=== PATIENT | female | born 1975 | race Caucasian/White ===

== ENCOUNTER 2018-03-12 12:10 | Inpatient (IN) | payer BC ==
[2018-03-12] MEDS ORDERED: ASPIRIN 325 MG TAB PO STA (12:55)
[2018-03-12] MEDS ORDERED: ONDANSETRON 4 MG/2 ML VIAL IVP STA (12:55)
[2018-03-12] MEDS ORDERED: SODIUM CHLORIDE 0.9% 1,000 ML IV ONE (12:55)
[2018-03-12 13:15] LABS: Basophils # (A) 0.1 k/uL (0-0.2); Basophils % (A) 1 %; Eosinophils # (A) 0.3 k/uL (0-0.7); Eosinophils % (A) 2 %; HCT 44.7 % (34.0-46.0); HGB 14.8 gm/dL (11.4-16.0); Lymphocytes # (A) 2.9 k/uL (1.0-4.8); Lymphocytes % (A) 24 %; MCH 31.1 pg (25.0-35.0); MCHC 33.1 g/dL (31.0-37.0); MCV 93.9 fL (80.0-100.0); Mean Platelet Volume 6.3; Monocytes # (A) 0.7 k/uL (0-1.0); Monocytes % (A) 6 %; Neutrophils # (A) 7.6 k/uL (1.3-7.7); Neutrophils % (A) 65 %; Platelet Count 441 k/uL (150-450); RBC 4.76 m/uL (3.80-5.40); RDW 12.9 % (11.5-15.5); WBC 11.8 k/uL (3.8-10.6)
[2018-03-12 13:21] LABS: Appearance,Urine Cloudy (Clear); Bacteria,Urine Occasional /hpf; Bilirubin,Urine Negative (Negative); Blood,Urine Moderate (Negative); Color,Urine Yellow; Glucose,Urine (UA) Negative (Negative); Ketones,Urine Trace (Negative); Leukocyte Esterase,Urine Large (Negative); Mucus,Urine Moderate /hpf; Nitrite,Urine Negative (Negative); PH, Urine 5.5 (5.0-8.0); Protein,Urine 1+ (Negative); RBC,Urine 66 /hpf (0-5); Specific Gravity,Urine 1.026 (1.001-1.035); Squamous Epithelial Cell,Urine 13 /hpf (0-4); Urobilinogen,Urine <2.0 mg/dL (<2.0); WBC,Urine 9 /hpf (0-5)
[2018-03-12 13:24] LABS: ALT 39 U/L (9-52); AST 33 U/L (14-36); Albumin 4.5 g/dL (3.5-5.0); Alcohol <10 mg/dL; Alkaline Phosphatase 71 U/L (38-126); Anion Gap 15 mmol/L; Blood Urea Nitrogen 15 mg/dL (7-17); Carbon Dioxide 17 mmol/L (22-30); Chloride 106 mmol/L (98-107); Glucose 112 mg/dL (74-99); Lipase 120 U/L (23-300); Potassium 4.9 mmol/L (3.5-5.1); Sodium 138 mmol/L (137-145); Total Bilirubin 0.5 mg/dL (0.2-1.3); Total Protein 7.6 g/dL (6.3-8.2)
--- NOTE | 2018-03-12 13:48 | ED ---
General Adult HPI - General Chief complaint: Weakness Stated complaint: weakness, nausea, near syncope Time Seen by Provider: 03/12/18 12:24 Source: patient Mode of arrival: wheelchair Limitations: no limitations - History of Present Illness Initial comments: 42-year-old female with past medical history as noted below presented for evaluation of a multitude of symptoms that been ongoing since she lost her job a week ago. She states at that time she became generally fatigued and has been sleeping for the majority of her days. This will be broken up by periods of crying and depression. She states that she has been continuing to eat however she has no appetite and has not been eating as much as usual. States is associated dizziness that she describes as the room spinning which is worse with ambulation and movement and improves with waiting. There some associated nausea and vomiting with it and abdominal pressure but she states that she is just getting over the "stomach flu" which proceeded losing her job a few days. She has previous abdominal surgeries which include a cholecystectomy and a partial hysterectomy. She has not started any new medications and has not taken any medications for her symptoms. She is visiting family here in [place] and does not have a primary care physician here. She further admits to suicidal ideations without a plan or attempt. - Related Data Home Medications Medication Instructions Recorded Confirmed Lisinopril [Prinivil] 20 mg PO DAILY 03/12/18 03/12/18 buPROPion [Wellbutrin] 100 mg PO BID 03/12/18 03/12/18 glipiZIDE [Glucotrol] 10 mg PO AC-BRKFST 03/12/18 03/12/18 metFORMIN HCL 1,000 mg PO BID 03/12/18 03/12/18 Allergies Allergy/AdvReac Type Severity Reaction Status Date / Time amoxicillin [From Augmentin] AdvReac Vomiting Verified 03/12/18 12:18 clavulanic acid AdvReac Vomiting Verified 03/12/18 12:18 [From Augmentin] Review of Systems ROS Statement: Those systems with pertinent positive or pertinent negative responses have been documented in the HPI. ROS Other: All systems not noted in ROS Statement are negative. Constitutional: Denies: fever, chills Eyes: Denies: eye pain, vision change ENT: Denies: ear pain, throat pain Respiratory: Denies: cough, dyspnea Cardiovascular: Denies: chest pain, palpitations Endocrine: Reports: fatigue. Denies: polydipsia, polyuria Gastrointestinal: Reports: abdominal pain, nausea, vomiting, diarrhea. Denies: constipation, hematemesis, hematochezia Genitourinary: Denies: urgency, dysuria Musculoskeletal: Denies: back pain, arthralgia, myalgia Skin: Denies: rash, lesions Neurological: Reports: headache, vertigo. Denies: weakness, numbness, paresthesias Psychiatric: Reports: anxiety, depression Hematological/Lymphatic: Denies: easy bleeding, easy bruising Past Medical History Past Medical History: Diabetes Mellitus, Hypertension History of Any Multi-Drug Resistant Organisms: None Reported Past Surgical History: Cholecystectomy, Hysterectomy, Tonsillectomy Past Psychological History: Depression Smoking Status: Never smoker Past Alcohol Use History: None Reported Past Drug Use History: None Reported General Exam Limitations: no limitations General appearance: alert, in no apparent distress Head exam: Present: atraumatic, normocephalic Eye exam: Present: normal appearance, PERRL, EOMI ENT exam: Present: normal exam, normal oropharynx Neck exam: Present: normal inspection, tenderness Respiratory exam: Present: normal lung sounds bilaterally, respiratory distress Cardiovascular Exam: Present: normal rhythm, tachycardia GI/Abdominal exam: Present: soft. Absent: distended, tenderness, guarding, rebound, rigid Rectal exam: Present: deferred Extremities exam: Present: normal inspection, full ROM Back exam: Present: normal inspection, full ROM Neurological exam: Present: alert, oriented X3 Psychiatric exam: Present: depressed, suicidal ideation, other (tearful) Skin exam: Present: warm, dry, intact Course Vital Signs 03/12/18 03/12/18 12:14 14:17 Temperature 98 F Pulse Rate 106 H 97 Respiratory 18 18 Rate Blood Pressure 126/85 127/85 O2 Sat by Pulse 98 99 Oximetry EKG Findings - EKG Comments: EKG Findings:: Sinus tachycardia with a ventricular rate of 105. Medical Decision Making - Medical Decision Making 43-year-old female with past medical history as noted above presented for evaluation of dizziness, nausea vomiting, abdominal pain, depression, and suicidal ideations. On physical examination she is tearful but consolable. Vital signs are stable with a mild tachycardia. Abdomen is soft and nontender without peritoneal signs of guarding rigidity or rebound. Lungs are clear to auscultation bilaterally, and the tachycardia is noted is without murmur or rub or gallop. Otherwise no significant abnormalities on physical exam. We'll obtain CT abdomen and pelvis and labs to evaluate medically however the patient will require psych eval. Consult was placed for psych evaluation and they were called and informed of the patient presenting symptoms. Labs showed a leukocytosis of 11.8 and urinary tract infection however this appears to be contaminated. CT abdomen and pelvis shows a partial obstruction of the left kidney at the ureteropelvic junction due to a 5 mm calculus. Discussed with the on-call urologist Dr. Rg who agreed with plan to set the patient on an antibiotic and requested that a straight cath urinalysis be obtained. Further agreed to take the patient as a consult and have her medically admitted. Discussed with Dr. Rangel who accepted the admission without further request. Admission order placed and bed request submitted. - Lab Data Result diagrams: 03/12/18 12:43 03/12/18 12:43 Lab Results 03/12/18 03/12/18 03/12/18 Range/Units 12:43 12:43 12:43 WBC 11.8 H (3.8-10.6) k/uL RBC 4.76 (3.80-5.40) m/uL Hgb 14.8 (11.4-16.0) gm/dL Hct 44.7 (34.0-46.0) % MCV 93.9 (80.0-100.0) fL MCH 31.1 (25.0-35.0) pg MCHC 33.1 (31.0-37.0) g/dL RDW 12.9 (11.5-15.5) % Plt Count 441 (150-450) k/uL Neutrophils % 65 % Lymphocytes % 24 % Monocytes % 6 % Eosinophils % 2 % Basophils % 1 % Neutrophils # 7.6 (1.3-7.7) k/uL Lymphocytes # 2.9 (1.0-4.8) k/uL Monocytes # 0.7 (0-1.0) k/uL Eosinophils # 0.3 (0-0.7) k/uL Basophils # 0.1 (0-0.2) k/uL Sodium 138 (137-145) mmol/L Potassium 4.9 (3.5-5.1) mmol/L Chloride 106 (98-107) mmol/L Carbon Dioxide 17 L (22-30) mmol/L Anion Gap 15 mmol/L BUN 15 (7-17) mg/dL Creatinine 0.60 (0.52-1.04) mg/dL Est GFR (CKD-EPI)AfAm >90 (>60 ml/min/1.73 sqM) Est GFR (CKD-EPI)NonAf >90 (>60 ml/min/1.73 sqM) Glucose 112 H (74-99) mg/dL Calcium 11.0 H (8.4-10.2) mg/dL Total Bilirubin 0.5 (0.2-1.3) mg/dL AST 33 (14-36) U/L ALT 39 (9-52) U/L Alkaline Phosphatase 71 (38-126) U/L Troponin I (0.000-0.034) ng/mL NT-Pro-B Natriuret Pep pg/mL Total Protein 7.6 (6.3-8.2) g/dL Albumin 4.5 (3.5-5.0) g/dL Lipase 120 (23-300) U/L Urine Color Urine Appearance (Clear) Urine pH (5.0-8.0) Ur Specific [place] (1.001-1.035) Urine Protein (Negative) Urine Glucose (UA) (Negative) Urine Ketones (Negative) Urine Blood (Negative) Urine Nitrite (Negative) Urine Bilirubin (Negative) Urine Urobilinogen (<2.0) mg/dL Ur Leukocyte Esterase (Negative) Urine RBC (0-5) /hpf Urine WBC (0-5) /hpf Ur Squamous Epith Cells (0-4) /hpf Urine Bacteria (None) /hpf Urine Mucus (None) /hpf Urine HCG, Qual Not Detected (Not Detectd) Serum Alcohol <10 mg/dL 03/12/18 03/12/18 03/12/18 Range/Units 12:43 12:43 12:43 WBC (3.8-10.6) k/uL RBC (3.80-5.40) m/uL Hgb (11.4-16.0) gm/dL Hct (34.0-46.0) % MCV (80.0-100.0) fL MCH (25.0-35.0) pg MCHC (31.0-37.0) g/dL RDW (11.5-15.5) % Plt Count (150-450) k/uL Neutrophils % % Lymphocytes % % Monocytes % % Eosinophils % % Basophils % % Neutrophils # (1.3-7.7) k/uL Lymphocytes # (1.0-4.8) k/uL Monocytes # (0-1.0) k/uL Eosinophils # (0-0.7) k/uL Basophils # (0-0.2) k/uL Sodium (137-145) mmol/L Potassium (3.5-5.1) mmol/L Chloride (98-107) mmol/L Carbon Dioxide (22-30) mmol/L Anion Gap mmol/L BUN (7-17) mg/dL Creatinine (0.52-1.04) mg/dL Est GFR (CKD-EPI)AfAm (>60 ml/min/1.73 sqM) Est GFR (CKD-EPI)NonAf (>60 ml/min/1.73 sqM) Glucose (74-99) mg/dL Calcium (8.4-10.2) mg/dL Total Bilirubin (0.2-1.3) mg/dL AST (14-36) U/L ALT (9-52) U/L Alkaline Phosphatase (38-126) U/L Troponin I <0.012 (0.000-0.034) ng/mL NT-Pro-B Natriuret Pep 17 pg/mL Total Protein (6.3-8.2) g/dL Albumin (3.5-5.0) g/dL Lipase (23-300) U/L Urine Color Yellow Urine Appearance Cloudy H (Clear) Urine pH 5.5 (5.0-8.0) Ur Specific [place] 1.026 (1.001-1.035) Urine Protein 1+ H (Negative) Urine Glucose (UA) Negative (Negative) Urine Ketones Trace H (Negative) Urine Blood Moderate H (Negative) Urine Nitrite Negative (Negative) Urine Bilirubin Negative (Negative) Urine Urobilinogen <2.0 (<2.0) mg/dL Ur Leukocyte Esterase Large H (Negative) Urine RBC 66 H (0-5) /hpf Urine WBC 9 H (0-5) /hpf Ur Squamous Epith Cells 13 H (0-4) /hpf Urine Bacteria Occasional H (None) /hpf Urine Mucus Moderate H (None) /hpf Urine HCG, Qual (Not Detectd) Serum Alcohol mg/dL Disposition Clinical Impression: Kidney stone, UTI (urinary tract infection), Suicidal ideations Disposition: ADMITTED IP TO THIS [facility] Referrals: None,Stated [Primary Care Provider] - 1-2 days Decision to Admit Reason: Admit from EC Decision Date: 03/12/18 Decision Time: 14:51
[2018-03-12] MEDS ORDERED: cefTRIAXone IN SWFI 1,000 MG/10 ML SYRINGE IVP STA (13:58)
--- NOTE | 2018-03-12 14:16 | CT ---
EXAMINATION TYPE: CT abdomen pelvis w con DATE OF EXAM: 03/12/2018 COMPARISON: NONE HISTORY: Weakness, Syncope and Nausea CT DLP: 1430.30 mGycm Automated exposure control for dose reduction was used. TECHNIQUE: Helical acquisition of images was performed from the lung bases through the pelvis. CONTRAST: Performed without Oral Contrast and with IV Contrast, patient injected with 100 ml mL of Isovue 300. FINDINGS: Lung bases are clear. There is no pleural effusion. There is no pericardial effusion. Liver spleen pancreas appear normal. There are clips from cholecystectomy. Bile ducts are not dilated . There is no adrenal mass. There are multiple small renal calculi. There is no hydronephrosis. There i s a 5 mm calculus at the left ureteropelvic junction. Is not clear if this is obstructing. There is n o significant dilation of the left renal pelvis. There is no retroperitoneal adenopathy. There is no ascites. Appendix appears normal. I see no intest inal wall thickening. There are no dilated loops. Bladder distends smoothly. There is no evidence of a pelvic mass. I see no bony destructive process. IMPRESSION: BILATERAL MULTIPLE RENAL CALCULI. THERE IS PROBABLY A PARTIAL OBSTRUCTION OF THE LEFT KIDNEY AT THE U RETEROPELVIC JUNCTION DUE TO CALCULUS. NORMAL APPENDIX.
[2018-03-12] MEDS ORDERED: KETOROLAC 30 MG/ML 1 ML VIAL IVP STA (14:22)
[2018-03-12] MEDS ORDERED: ONDANSETRON 4 MG/2 ML VIAL IVP PRN (14:51)
[2018-03-12] MEDS ORDERED: NALOXONE 0.4 MG/ML 1 ML VIAL IV PRN ×2 (14:51→15:55)
[2018-03-12] MEDS: SODIUM CHLORIDE 0.9% 1,000 ML IV SCH ×2 (15:42→21:20)
[2018-03-12 15:46] LABS: Appearance,Urine Clear (Clear); Bilirubin,Urine Negative (Negative); Blood,Urine Negative (Negative); Color,Urine Yellow; Glucose,Urine (UA) Negative (Negative); Ketones,Urine Trace (Negative); Leukocyte Esterase,Urine Negative (Negative); Nitrite,Urine Negative (Negative); PH, Urine 5.5 (5.0-8.0); Protein,Urine Trace (Negative); Urobilinogen,Urine <2.0 mg/dL (<2.0)
[2018-03-12 15:51] LABS: Specific Gravity,Urine >1.050 (1.001-1.035)
--- NOTE | 2018-03-12 16:15 | P.HPIM ---
History of Present Illness H&P Date: 03/12/18 Chief Complaint: Weak 42-year-old female with past medical history as noted below presented to the emergency department because of several days history of weakness, fatigue , dizziness, lethargy. About a week ago patient had what she thought to be a stomach flu, she was having frequent nausea, vomiting as well as diarrhea and abdominal pain. Currently those symptoms are resolved but she has been feeling general fatigue, has been sleeping for the majority of her days, hasn't been having much of an appetite or eating well. She denied having any fevers or chills. No chest pain or shortness of breath. No urinary symptoms including dysuria, frequency or urgency. No hematemesis or hematochezia. Patient has also been having depressed mood over the last several days, has been experiencing periods of crying. Earlier she had suicidal ideations but currently she doesn't have any. Review of Systems 12 point review of system performed, negative except HPI Past Medical History Past Medical History: Diabetes Mellitus, Hypertension History of Any Multi-Drug Resistant Organisms: None Reported Past Surgical History: Cholecystectomy, Hysterectomy, Tonsillectomy Past Psychological History: Depression Smoking Status: Never smoker Past Alcohol Use History: None Reported Past Drug Use History: None Reported Medications and Allergies Home Medications Medication Instructions Recorded Confirmed Type Lisinopril [Prinivil] 20 mg PO DAILY 03/12/18 03/12/18 History buPROPion HCL [Wellbutrin SR] 100 mg PO BID 03/12/18 03/12/18 History glipiZIDE [Glucotrol] 10 mg PO AC-BRKFST 03/12/18 03/12/18 History metFORMIN HCL 1,000 mg PO BID 03/12/18 03/12/18 History Allergies Allergy/AdvReac Type Severity Reaction Status Date / Time amoxicillin [From Augmentin] AdvReac Vomiting Verified 03/12/18 15:41 clavulanic acid AdvReac Vomiting Verified 03/12/18 15:41 [From Augmentin] Physical Exam Vitals: Vital Signs Temp Pulse Resp BP Pulse Ox 03/12/18 14:17 97 18 127/85 99 03/12/18 12:14 98 F 106 H 18 126/85 98 Intake and Output 03/12/18 03/12/18 03/12/18 06:59 14:59 22:59 Output Total 10 Balance -10 Output: Urine 10 Straight 10 Other: Weight 83.007 kg Constitutional: No acute distress, conversant, pleasant Eyes:Anicteric sclerae, moist conjunctiva, no lid-lag, PERRLA, ENMT: Oropharynx clear, no erythema, exudates Neck: Supple, FROM, no masses, or JVD, No carotid bruits, No thyromegaly Lungs: Clear to auscultation, Clear to percussion, Normal respiratory effort, no accessory muscle use Cardiovascular: Heart regular in rate and rhythm, No murmurs, gallops, or rubs, No peripheral edema Abdominal: Soft, Nontender, no guarding, rebound or rigidity, Normoactive bowel sounds, No hepatomegaly, No splenomegaly, No palpable mass Skin: Normal temperature, tone, texture, turgor, no induration, No subcutaneous nodules, No rash, lesions, No ulcers Extremities: No digital cyanosis, No clubbing, Pedal pulses intact and symmetrical, Radial pulses intact and symmetrical, No calf tenderness Psychiatric: Alert and oriented to person, place and time, appropriate affect, intact judgement Neuro: Muscles Strength 5/5 in all 4 extremities, Sensation to light touch grossly present throughout, Cranial nerves II-XII grossly intact, no focal sensory deficits Results CBC & Chem 7: 03/12/18 12:43 03/12/18 12:43 Labs: Abnormal Lab Results - Last 24 Hours (Table) 03/12/18 03/12/18 03/12/18 Range/Units 12:43 12:43 12:43 WBC 11.8 H (3.8-10.6) k/uL Carbon Dioxide 17 L (22-30) mmol/L Glucose 112 H (74-99) mg/dL Calcium 11.0 H (8.4-10.2) mg/dL Urine Appearance Cloudy H (Clear) Ur Specific [place] (1.001-1.035) Urine Protein 1+ H (Negative) Urine Ketones Trace H (Negative) Urine Blood Moderate H (Negative) Ur Leukocyte Esterase Large H (Negative) Urine RBC 66 H (0-5) /hpf Urine WBC 9 H (0-5) /hpf Ur Squamous Epith Cells 13 H (0-4) /hpf Urine Bacteria Occasional H (None) /hpf Urine Mucus Moderate H (None) /hpf 03/12/18 Range/Units 15:34 WBC (3.8-10.6) k/uL Carbon Dioxide (22-30) mmol/L Glucose (74-99) mg/dL Calcium (8.4-10.2) mg/dL Urine Appearance (Clear) Ur Specific [place] >1.050 H (1.001-1.035) Urine Protein Trace H (Negative) Urine Ketones Trace H (Negative) Urine Blood (Negative) Ur Leukocyte Esterase (Negative) Urine RBC (0-5) /hpf Urine WBC (0-5) /hpf Ur Squamous Epith Cells (0-4) /hpf Urine Bacteria (None) /hpf Urine Mucus (None) /hpf Assessment and Plan Plan: Acute sepsis likely secondary to urinary tract infection/pyelonephritis IV fluids Urine cultures sent in the emergency department Stat blood cultures and lactic acid level Antibiotics Kidney stones Urology consulted Will see patient in a.m. Depression with suicidal ideation Seen by psychiatry emergency department No need for a sitter at this point. Diabetes type 2 Resume home medications Sliding scale insulin with blood sugar checks every before meals and at bedtime Essential hypertension Resume home medications Stable DVT prophylaxis Not indicated as patient is ambulatory Disposition: Likely home Anticipated length of stay: 2-3 days Sepsis - Sepsis Sepsis Focused Exam #1 Sepsis Focused Exam Date: 03/12/18 Sepsis Focused Exam Time: 15:00 Capillary Refill: < 2 Seconds: Fingers, Toes Peripheral Pulses: Normal: Radial (R), Radial (L), Posterior Tibialis (R), Posterior Tibialis (L), Dorsalis Pedis (R), Dorsalis Pedis (L) Skin Color: Normal for Patient Respiratory Exam: normal lung sounds Cardiovascular Exam: regular rate, normal rhythm, normal heart sounds
[2018-03-12 16:49] VITALS: BMI 33.5
[2018-03-12] MEDS: LEVOFLOXACIN 750MG-D5W PMX 750 MG in DEXTROSE/WATER 1 150ML.BAG IVPB SCH (16:53)
[2018-03-12] MEDS: MORPHINE SULFATE 2 MG/ML SYRINGE IV PRN ×2 (16:59→21:21)
[2018-03-12] MEDS: INSULIN ASPART 100 UNIT/ML 1 ML 10 ML VIAL SQ SCH ×2 (17:12→21:20)
[2018-03-12 17:13] LABS: Glucose,Whole Blood 98 mg/dL (75-99)
[2018-03-12] MEDS: KETOROLAC 30 MG/ML 1 ML VIAL IVP PRN (18:17)
[2018-03-12] MEDS: oxyCODONE-APAP 5-325MG 1 EACH TAB PO PRN (19:50)
[2018-03-12 20:49] LABS: Glucose,Whole Blood 210 mg/dL (75-99)
[2018-03-12] MEDS: metFORMIN 500 MG TAB PO SCH (21:20)
[2018-03-12] MEDS: buPROPion 100 MG TAB PO SCH (21:20)
[2018-03-12] MEDS: ONDANSETRON 4 MG/2 ML VIAL IVP PRN (22:50)
[2018-03-12] MEDS: ACETAMINOPHEN TAB 325 MG TAB PO PRN (23:39)
[2018-03-13] MEDS: KETOROLAC 30 MG/ML 1 ML VIAL IVP PRN ×2 (01:27→15:40)
[2018-03-13] MEDS: SODIUM CHLORIDE 0.9% 1,000 ML IV SCH ×5 (02:51→21:06)
[2018-03-13] MEDS: MORPHINE SULFATE 2 MG/ML SYRINGE IV PRN ×5 (02:52→23:07)
[2018-03-13 07:23] LABS: Glucose,Whole Blood 140 mg/dL (75-99)
[2018-03-13] MEDS: INSULIN ASPART 100 UNIT/ML 1 ML 10 ML VIAL SQ SCH ×4 (07:52→21:07)
[2018-03-13] MEDS: LISINOPRIL 20 MG TAB PO SCH (07:53)
[2018-03-13] MEDS: glipiZIDE 10 MG TAB PO SCH (07:53)
[2018-03-13] MEDS: metFORMIN 500 MG TAB PO SCH ×2 (07:53→21:06)
[2018-03-13] MEDS: buPROPion 100 MG TAB PO SCH ×2 (07:53→21:06)
[2018-03-13] MEDS: ONDANSETRON 4 MG/2 ML VIAL IVP PRN ×2 (08:15→19:54)
[2018-03-13 08:38] LABS: Basophils # (A) 0.1 k/uL (0-0.2); Basophils % (A) 1 %; Eosinophils # (A) 0.3 k/uL (0-0.7); Eosinophils % (A) 3 %; HCT 38.6 % (34.0-46.0); HGB 12.4 gm/dL (11.4-16.0); Lymphocytes # (A) 3.8 k/uL (1.0-4.8); Lymphocytes % (A) 40 %; MCH 31.1 pg (25.0-35.0); MCHC 32.1 g/dL (31.0-37.0); MCV 96.8 fL (80.0-100.0); Mean Platelet Volume 6.2; Monocytes # (A) 0.6 k/uL (0-1.0); Monocytes % (A) 6 %; Neutrophils # (A) 4.6 k/uL (1.3-7.7); Neutrophils % (A) 48 %; Platelet Count 358 k/uL (150-450); RBC 3.99 m/uL (3.80-5.40); RDW 13.4 % (11.5-15.5); WBC 9.6 k/uL (3.8-10.6)
[2018-03-13 08:46] LABS: Anion Gap 9 mmol/L; Blood Urea Nitrogen 12 mg/dL (7-17); Calcium 9.1 mg/dL (8.4-10.2); Carbon Dioxide 18 mmol/L (22-30); Chloride 108 mmol/L (98-107); Glucose 129 mg/dL (74-99); Sodium 135 mmol/L (137-145)
[2018-03-13 09:05] LABS: Glucose,Whole Blood 140 mg/dL (75-99)
[2018-03-13] MEDS: ACETAMINOPHEN TAB 325 MG TAB PO PRN (11:10)
--- NOTE | 2018-03-13 11:24 | P.GSCN ---
History of Present Illness Consult date: 03/13/18 Reason for Consult: Left ureteral calculus History of present illness: The patient is a 42-year-old female who presented to emergency room yesterday afternoon with a variety of complaints including lethargy and nausea. White blood count was 11,900. A urinalysis showed 66 red cells, 9 white cells and 13 epithelial cells. Computed tomography scan of the abdomen and pelvis was obtained and identified a 4 mm diameter calculus in the proximal left ureter with mild left hydronephrosis. The patient apparently developed pain in her left flank while she was in the emergency room and the pain worsened yesterday evening. She rated it as an 8 out of 10 during the night but says she is more comfortable now. She has had no fever or chills. She denies any gross hematuria and has noted no recent change in her normal voiding pattern. The patient has a history of urolithiasis and says she first had a stone at the age of 17. She says that she has undergone 2 ureteroscopic removals of stones and one ESWL treatment. Her treatments in the past were performed in [place]. The patient normally lives in [place] and is in [place] only temporarily at the present time. She said that she had originally planned on returning to [place] tomorrow. Review of Systems - Constitutional Reports fatigue, Reports lethargy, Denies chills, Denies fever - Cardiovascular Denies shortness of breath - Respiratory Denies dyspnea - Gastrointestinal Reports as per HPI Past Medical History Past Medical History: Diabetes Mellitus, Hypertension History of Any Multi-Drug Resistant Organisms: None Reported Past Surgical History: Cholecystectomy, Hysterectomy, Tonsillectomy Additional Past Surgical History / Comment(s): partial hysterectomy, extracorporeal shockwave lithotripsy and ureteroscopy with lithotripsy twice Past Anesthesia/Blood Transfusion Reactions: No Reported Reaction Past Psychological History: Depression Smoking Status: Never smoker Past Alcohol Use History: None Reported Past Drug Use History: None Reported - Past Family History Father Family Medical History: Diabetes Mellitus, Myocardial Infarction ([place]) Additional Family Medical History / Comment(s): from [place] in 2007 at 60 years Medications and Allergies Home Medications Medication Instructions Recorded Confirmed Type Lisinopril [Prinivil] 20 mg PO DAILY 03/12/18 03/12/18 History buPROPion HCL [Wellbutrin SR] 100 mg PO BID 03/12/18 03/12/18 History glipiZIDE [Glucotrol] 10 mg PO AC-BRKFST 03/12/18 03/12/18 History metFORMIN HCL 1,000 mg PO BID 03/12/18 03/12/18 History Allergies Allergy/AdvReac Type Severity Reaction Status Date / Time amoxicillin [From Augmentin] AdvReac Vomiting Verified 03/12/18 15:41 clavulanic acid AdvReac Vomiting Verified 03/12/18 15:41 [From Augmentin] Surgical - Exam Vital Signs Temp Pulse Resp BP Pulse Ox 98 F 106 H 18 126/85 98 03/12/18 12:14 03/12/18 12:14 03/12/18 12:14 03/12/18 12:14 03/12/18 12:14 - General well developed, well nourished, no distress, obese - Respiratory normal respiratory effort - Abdomen Abdomen: soft, non tender, no organomegaly Results - Labs 03/13/18 07:56 03/13/18 07:56 Abnormal Lab Results - Last 24 Hours (Table) 03/12/18 03/12/18 03/12/18 Range/Units 12:43 12:43 12:43 WBC 11.8 H (3.8-10.6) k/uL Sodium (137-145) mmol/L Chloride (98-107) mmol/L Carbon Dioxide 17 L (22-30) mmol/L Creatinine (0.52-1.04) mg/dL Glucose 112 H (74-99) mg/dL POC Glucose (mg/dL) (75-99) mg/dL Calcium 11.0 H (8.4-10.2) mg/dL Urine Appearance Cloudy H (Clear) Ur Specific [place] (1.001-1.035) Urine Protein 1+ H (Negative) Urine Ketones Trace H (Negative) Urine Blood Moderate H (Negative) Ur Leukocyte Esterase Large H (Negative) Urine RBC 66 H (0-5) /hpf Urine WBC 9 H (0-5) /hpf Ur Squamous Epith Cells 13 H (0-4) /hpf Urine Bacteria Occasional H (None) /hpf Urine Mucus Moderate H (None) /hpf 03/12/18 03/12/18 03/13/18 Range/Units 15:34 20:46 07:16 WBC (3.8-10.6) k/uL Sodium (137-145) mmol/L Chloride (98-107) mmol/L Carbon Dioxide (22-30) mmol/L Creatinine (0.52-1.04) mg/dL Glucose (74-99) mg/dL POC Glucose (mg/dL) 210 H 140 H (75-99) mg/dL Calcium (8.4-10.2) mg/dL Urine Appearance (Clear) Ur Specific [place] >1.050 H (1.001-1.035) Urine Protein Trace H (Negative) Urine Ketones Trace H (Negative) Urine Blood (Negative) Ur Leukocyte Esterase (Negative) Urine RBC (0-5) /hpf Urine WBC (0-5) /hpf Ur Squamous Epith Cells (0-4) /hpf Urine Bacteria (None) /hpf Urine Mucus (None) /hpf 03/13/18 03/13/18 Range/Units 07:56 09:02 WBC (3.8-10.6) k/uL Sodium 135 L (137-145) mmol/L Chloride 108 H (98-107) mmol/L Carbon Dioxide 18 L (22-30) mmol/L Creatinine 0.50 L (0.52-1.04) mg/dL Glucose 129 H (74-99) mg/dL POC Glucose (mg/dL) 140 H (75-99) mg/dL Calcium (8.4-10.2) mg/dL Urine Appearance (Clear) Ur Specific [place] (1.001-1.035) Urine Protein (Negative) Urine Ketones (Negative) Urine Blood (Negative) Ur Leukocyte Esterase (Negative) Urine RBC (0-5) /hpf Urine WBC (0-5) /hpf Ur Squamous Epith Cells (0-4) /hpf Urine Bacteria (None) /hpf Urine Mucus (None) /hpf Microbiology - Last 24 Hours (Table) 03/12/18 15:34 Urine Culture - Preliminary Urine,Voided Diabetes panel 03/12/18 03/13/18 Range/Units 12:43 07:56 Sodium 138 135 L (137-145) mmol/L Potassium 4.9 5.0 (3.5-5.1) mmol/L Chloride 106 108 H (98-107) mmol/L Carbon Dioxide 17 L 18 L (22-30) mmol/L BUN 15 12 (7-17) mg/dL Creatinine 0.60 0.50 L (0.52-1.04) mg/dL Glucose 112 H 129 H (74-99) mg/dL Calcium 11.0 H 9.1 (8.4-10.2) mg/dL AST 33 (14-36) U/L ALT 39 (9-52) U/L Alkaline Phosphatase 71 (38-126) U/L Total Protein 7.6 (6.3-8.2) g/dL Albumin 4.5 (3.5-5.0) g/dL Calcium panel 03/12/18 03/13/18 Range/Units 12:43 07:56 Calcium 11.0 H 9.1 (8.4-10.2) mg/dL Albumin 4.5 (3.5-5.0) g/dL Pituitary panel 03/12/18 03/13/18 Range/Units 12:43 07:56 Sodium 138 135 L (137-145) mmol/L Potassium 4.9 5.0 (3.5-5.1) mmol/L Chloride 106 108 H (98-107) mmol/L Carbon Dioxide 17 L 18 L (22-30) mmol/L BUN 15 12 (7-17) mg/dL Creatinine 0.60 0.50 L (0.52-1.04) mg/dL Glucose 112 H 129 H (74-99) mg/dL Calcium 11.0 H 9.1 (8.4-10.2) mg/dL Adrenal panel 03/12/18 03/13/18 Range/Units 12:43 07:56 Sodium 138 135 L (137-145) mmol/L Potassium 4.9 5.0 (3.5-5.1) mmol/L Chloride 106 108 H (98-107) mmol/L Carbon Dioxide 17 L 18 L (22-30) mmol/L BUN 15 12 (7-17) mg/dL Creatinine 0.60 0.50 L (0.52-1.04) mg/dL Glucose 112 H 129 H (74-99) mg/dL Calcium 11.0 H 9.1 (8.4-10.2) mg/dL Total Bilirubin 0.5 (0.2-1.3) mg/dL AST 33 (14-36) U/L ALT 39 (9-52) U/L Alkaline Phosphatase 71 (38-126) U/L Total Protein 7.6 (6.3-8.2) g/dL Albumin 4.5 (3.5-5.0) g/dL Assessment and Plan Assessment: I personally reviewed the patient's computed tomography scan. She has a 4 mm diameter calculus in the proximal left ureter that may be somewhat bilobed. No other renal calculi were noted. i discussed further observation, ESWL or ureteroscopy with lithotripsy for the calculus. KUB will be obtained later today to determine whether or not ESWL may be a treatment option. I will reevaluate the patient in the morning. I am not convinced that the patient has a urinary tract infection as it is possible that this was a contaminated specimen area (1) Kidney stone Current Visit: Yes Status: Acute Code(s): N20.0 - CALCULUS OF KIDNEY SNOMED Code(s): 76360283
[2018-03-13 12:11] LABS: Glucose,Whole Blood 133 mg/dL (75-99)
--- NOTE | 2018-03-13 12:18 | XR ---
EXAMINATION TYPE: XR KUB DATE OF EXAM: 03/13/2018 COMPARISON: 03/12/2018 HISTORY: Left ureteral calculus TECHNIQUE: One view abdominal series FINDINGS: The osseous structures are intact. The bowel gas pattern is nonspecific. There are 3 calcifications overlying the lower pole the left kidney all measuring less than 5 mm. Right kidney assessment is limited due to fecal debris overlying bowel content. 2 punctate lower pole less than 5 mm calculi are suspected. Previous surgery in the right upper quadrant noted. Calcification right dilcia-pelvis appears to be rel ated to vascular calcification on the CT scan. IMPRESSION: 1. Bilateral nephrolithiasis.
--- NOTE | 2018-03-13 12:58 | P.PN ---
Subjective Progress Note Date: 03/13/18 Principal diagnosis: Flank pain, general weakness Patient has been having left-sided flank pain since last night. The pain is 8 out of 10 in severity. Still having nausea but no vomiting. No fevers or chills. Objective - Vital Signs Vital signs: Vital Signs Temp 97.3 F L 03/13/18 05:50 Pulse 86 03/13/18 05:50 Resp 16 03/13/18 05:50 BP 131/85 03/13/18 05:50 Pulse Ox 98 03/13/18 05:50 Intake & Output 03/12/18 03/13/18 03/13/18 18:59 06:59 18:59 Output Total 10 500 Balance -10 -500 Weight 83.007 kg Output: Urine 10 500 Straight 10 Other: Voiding Method Toilet # Voids 2 2 - Exam Constitutional: No acute distress, conversant, pleasant Eyes:Anicteric sclerae, moist conjunctiva, no lid-lag, PERRLA, ENMT: Oropharynx clear, no erythema, exudates Neck: Supple, FROM, no masses, or JVD, No carotid bruits, No thyromegaly Lungs: Clear to auscultation, Clear to percussion, Normal respiratory effort, no accessory muscle use Cardiovascular: Heart regular in rate and rhythm, No murmurs, gallops, or rubs, No peripheral edema Abdominal: Soft, Nontender, no guarding, rebound or rigidity, Normoactive bowel sounds, No hepatomegaly, No splenomegaly, No palpable mass Skin: Normal temperature, tone, texture, turgor, no induration, No subcutaneous nodules, No rash, lesions, No ulcers Extremities: No digital cyanosis, No clubbing, Pedal pulses intact and symmetrical, Radial pulses intact and symmetrical, No calf tenderness Psychiatric: Alert and oriented to person, place and time, appropriate affect, intact judgement Neuro: Muscles Strength 5/5 in all 4 extremities, Sensation to light touch grossly present throughout, Cranial nerves II-XII grossly intact, no focal sensory deficits - Labs CBC & Chem 7: 03/13/18 07:56 03/13/18 07:56 Labs: Abnormal Lab Results - Last 24 Hours (Table) 03/12/18 03/12/18 03/12/18 Range/Units 12:43 12:43 12:43 WBC 11.8 H (3.8-10.6) k/uL Sodium (137-145) mmol/L Chloride (98-107) mmol/L Carbon Dioxide 17 L (22-30) mmol/L Creatinine (0.52-1.04) mg/dL Glucose 112 H (74-99) mg/dL POC Glucose (mg/dL) (75-99) mg/dL Calcium 11.0 H (8.4-10.2) mg/dL Urine Appearance Cloudy H (Clear) Ur Specific [place] (1.001-1.035) Urine Protein 1+ H (Negative) Urine Ketones Trace H (Negative) Urine Blood Moderate H (Negative) Ur Leukocyte Esterase Large H (Negative) Urine RBC 66 H (0-5) /hpf Urine WBC 9 H (0-5) /hpf Ur Squamous Epith Cells 13 H (0-4) /hpf Urine Bacteria Occasional H (None) /hpf Urine Mucus Moderate H (None) /hpf 03/12/18 03/12/18 03/13/18 Range/Units 15:34 20:46 07:16 WBC (3.8-10.6) k/uL Sodium (137-145) mmol/L Chloride (98-107) mmol/L Carbon Dioxide (22-30) mmol/L Creatinine (0.52-1.04) mg/dL Glucose (74-99) mg/dL POC Glucose (mg/dL) 210 H 140 H (75-99) mg/dL Calcium (8.4-10.2) mg/dL Urine Appearance (Clear) Ur Specific [place] >1.050 H (1.001-1.035) Urine Protein Trace H (Negative) Urine Ketones Trace H (Negative) Urine Blood (Negative) Ur Leukocyte Esterase (Negative) Urine RBC (0-5) /hpf Urine WBC (0-5) /hpf Ur Squamous Epith Cells (0-4) /hpf Urine Bacteria (None) /hpf Urine Mucus (None) /hpf 03/13/18 03/13/18 03/13/18 Range/Units 07:56 09:02 12:03 WBC (3.8-10.6) k/uL Sodium 135 L (137-145) mmol/L Chloride 108 H (98-107) mmol/L Carbon Dioxide 18 L (22-30) mmol/L Creatinine 0.50 L (0.52-1.04) mg/dL Glucose 129 H (74-99) mg/dL POC Glucose (mg/dL) 140 H 133 H (75-99) mg/dL Calcium (8.4-10.2) mg/dL Urine Appearance (Clear) Ur Specific [place] (1.001-1.035) Urine Protein (Negative) Urine Ketones (Negative) Urine Blood (Negative) Ur Leukocyte Esterase (Negative) Urine RBC (0-5) /hpf Urine WBC (0-5) /hpf Ur Squamous Epith Cells (0-4) /hpf Urine Bacteria (None) /hpf Urine Mucus (None) /hpf Microbiology - Last 24 Hours (Table) 03/12/18 15:34 Urine Culture - Preliminary Urine,Voided Assessment and Plan Plan: Urinary tract infection/pyelonephritis Urine cultures sent in the emergency department Antibiotics Kidney stones Seen by urology Will reevaluate patient in a.m. options to let stones passed spontaneously versus doing lithotripsy or cystoscopy. Diabetes type 2 Resume home medications Blood sugars controlled Sliding scale insulin with blood sugar checks every before meals and at bedtime Essential hypertension Resume home medications Stable DVT prophylaxis Not indicated as patient is ambulatory Disposition: Likely home Anticipated length of stay: 1-2 days
[2018-03-13 17:09] LABS: Glucose,Whole Blood 85 mg/dL (75-99)
[2018-03-13] MEDS: LEVOFLOXACIN 750MG-D5W PMX 750 MG in DEXTROSE/WATER 1 150ML.BAG IVPB SCH (17:39)
--- NOTE | 2018-03-13 21:00 | P.PN ---
Progress Note - Text Progress Note Date: 03/13/18 The patient continues to have intermittent left flank pain. Her left ureteral calculi are visible on a KUB. I discussed observation vs ESWL and the patient says she would like to procede with ESWL tomorrow. All questions regarding ESWl were answered. She may be able to be discharged later in the day following the procedure if she is comfortable.
[2018-03-13] MEDS: oxyCODONE-APAP 5-325MG 1 EACH TAB PO PRN (21:05)
[2018-03-13 21:12] LABS: Glucose,Whole Blood 120 mg/dL (75-99)
[2018-03-14] MEDS: ACETAMINOPHEN TAB 325 MG TAB PO PRN ×3 (01:46→16:03)
[2018-03-14] MEDS: SODIUM CHLORIDE 0.9% 1,000 ML IV SCH ×3 (03:45→11:13)
[2018-03-14] MEDS: MORPHINE SULFATE 2 MG/ML SYRINGE IV PRN ×3 (03:46→13:30)
[2018-03-14] MEDS: ONDANSETRON 4 MG/2 ML VIAL IVP PRN (04:55)
[2018-03-14 07:28] LABS: Glucose,Whole Blood 118 mg/dL (75-99)
[2018-03-14] MEDS: INSULIN ASPART 100 UNIT/ML 1 ML 10 ML VIAL SQ SCH ×2 (07:29→12:59)
[2018-03-14] MEDS: LISINOPRIL 20 MG TAB PO SCH (07:39)
[2018-03-14] MEDS: buPROPion 100 MG TAB PO SCH (07:39)
[2018-03-14] MEDS ORDERED: FLUCONAZOLE 150 MG TAB PO SCH (10:00)
[2018-03-14] MEDS: metFORMIN 500 MG TAB PO SCH (10:35)
[2018-03-14] MEDS: glipiZIDE 10 MG TAB PO SCH (10:35)
[2018-03-14] MEDS ORDERED: IV FLUID CONTINUATION 1,000 ML IV ONE (11:30)
--- NOTE | 2018-03-14 12:09 | P.OP ---
Date of Procedure: 03/14/18 Preoperative Diagnosis: Left ureteral calculus Postoperative Diagnosis: Left ureteral calculus Procedure(s) Performed: Extracorporal shockwave lithotripsy Anesthesia: MAC Surgeon: Nathen Rg Estimated Blood Loss (ml): 0 Pathology: none sent Condition: stable Disposition: PACU Indications for Procedure: The patient has left flank pain from a 3-4 mm diameter calculus noted in the proximal left ureter on CT scan and KUB. ESWL is planned for treatment. Description of Procedure: The patient was taken to the operating suite and placed in the supine position on the fluoroscopy table. The proximal left ureteral calculus was localized using biplanar fluoroscopy. Lithotripsy was performed using the Dornier compact delta unit. The patient received 2500 shocks at level 5 at a rate of 80 shocks per minute. A 2 minute pause occured after 200 shocks. There appeared to be fragmentation of the calculus. The patient tolerated the procedure well and left the operating room in satisfactory condition She can be discharged later today if comfortable and should have a followup appointment in 1 week.
[2018-03-14 13:01] LABS: Glucose,Whole Blood 129 mg/dL (75-99)
[2018-03-14 14:53] VITALS: BP 142/88; PULSE 92; RESP 16; TEMP 96.6
--- NOTE | 2018-03-14 16:44 | P.DS ---
Providers Date of admission: 03/12/18 14:51 Expected date of discharge: 03/14/18 Attending physician: Cristo Rangel MD Consults: 03/12/18 14:52 Consult Physician Routine Consulting Provider: Nathen Rg Consult Reason/Comments: Kidney stone / UTI Do you want consulting provider notified?: Already Contacted Primary care physician: Stated None - Discharge Diagnosis(es) (1) Renal calculus, left Status: Acute (2) Left flank pain Status: Acute (3) Type 2 diabetes mellitus Status: Acute (4) Leukocytosis Status: Acute Hospital Course: The patient is a 42-year-old morbidly obese female with a past medical history of type 2 diabetes and recurrent kidney stones who presented to the ER with chief complaint of acute sudden onset of left flank and pelvic pain , on admission there is concern that the patient might have acute sepsis as she does present with a mild leukocytosis, with concern for urinary tract infection she was started on empiric IV antibiotics, placed on IV fluids for hydration with when necessary morphine for pain and Zofran for nausea. CT abdomen and pelvis performed in the ER showed multiple bilateral renal calculi with a partial obstruction of the left kidney at the UPJ. Urology Dr. Rg was consulted and he proceeded to perform a extracorporeal Shockwave with lithotripsy, antibiotics were discontinued urine cultures were negative. The patient tolerated her ESWL procedure without any adverse effects and was subsequently recommended for discharge. She was discharged home in stable condition recommended to follow-up with Dr. Rg in 1 week. Medications at discharge Flomax. This discharge process took approximately 30 minutes Patient Condition at Discharge: Good Plan - Discharge Summary Discharge Rx Participant: Yes New Discharge Prescriptions: New Tamsulosin [Flomax] 0.4 mg PO DAILY #10 cap Continue metFORMIN HCL 1,000 mg PO BID glipiZIDE [Glucotrol] 10 mg PO AC-BRKFST Lisinopril [Prinivil] 20 mg PO DAILY buPROPion HCL [Wellbutrin SR] 100 mg PO BID Discharge Medication List Lisinopril [Prinivil] 20 mg PO DAILY 03/12/18 [History] buPROPion HCL [Wellbutrin SR] 100 mg PO BID 03/12/18 [History] glipiZIDE [Glucotrol] 10 mg PO AC-BRKFST 03/12/18 [History] metFORMIN HCL 1,000 mg PO BID 03/12/18 [History] Tamsulosin [Flomax] 0.4 mg PO DAILY #10 cap 03/14/18 [Rx] Follow up Appointment(s)/Referral(s): None,Stated [Primary Care Provider] - 1-2 days Patient Instructions/Handouts: Kidney Stones (DC) Discharge Disposition: HOME SELF-CARE
--- NOTE | 2018-03-17 10:02 | CDI ---
Last Revision, August 2017 Documentation Clarification Form Date: 03/17/2018 12:00:00 AM From: Shawna Eaton Phone: If you have a question about this query, please contact Estephania Carver Roll Line Operator at [phone] between 8am and 5pm. Admit Date: 03/12/2018 2:51:00 PM Patient Name: Cally Clark Visit Number: [id number] Discharge Date: ATTENTION: The Clinical Documentation Specialists (CDI) and [facility] Coding Staff appreciate your assistance in clarifying documentation. Please respond to the clarification below the line at the bottom and electronically sign. The CDI & [facility] Coding staff will review the response and follow-up if needed. Please note: Queries are made part of the Legal Health Record. If you have any questions, please contact the author of this message via ITS. Dr. Pablito Brunson Documentation and location in H and P states Acute sepsis second to UTI/ pyelonephritis. DCS concern patient [facility] have acute sepsis with UTI started on empiric IV ABX and IV fluids. History/Risk Factors: Ureter Calculus, pyelonephritis Clinical Indicators: WBC/Left Shift 11.8 Lactic acid: Blood cultures: Vitals signs on admission: 98 F 106 bpm 18 126/85 98% Other Clinical Indicators: Treatment: Empiric IV ABX and IV fluids ID Consult: Antibiotics: IV Bolus: Other: In your professional opinion, please clarify if patient had sepsis, did it resolve or was it ruled out. Sepsis ruled out Present on Admission: No MTDD
== END 2018-03-14 16:25 | disposition home or self-care (01) | DRG 691 ==
LOC: EC 12:10 → 4MS4W 14:51
PROVIDERS: ADMIT Internal Medicine; ATTEND Internal Medicine
PROC: 0TF7XZZ Fragmentation in Left Ureter, External Approach (ICD-10-PCS; principal; 2018-03-14 07:30)
DX: N20.1 Calculus of ureter (principal); R45.851 Suicidal ideations; N13.6 Pyonephrosis; E11.9 Type 2 diabetes mellitus without complications; E66.01 Morbid (severe) obesity due to excess calories; F32.9 Major depressive disorder, single episode, unspecified; I10 Essential (primary) hypertension; Z87.442 Personal history of urinary calculi; Z79.899 Other long term (current) drug therapy; Z82.49 Family history of ischemic heart disease and other diseases of the circulatory system; Z83.3 Family history of diabetes mellitus; Z90.710 Acquired absence of both cervix and uterus; Z68.33 Body mass index [BMI] 33.0-33.9, adult; Z88.0 Allergy status to penicillin; Z79.84 Long term (current) use of oral hypoglycemic drugs
CPT/HCPCS: 36415; 74018; 74177; 80048; 80053; 80320; 81001; 81003; 81025; 83690; 83880; 84484; 85025; 87040; 87086; 93005; 96361; 96374; 96375; 99285

== ENCOUNTER 2022-04-21 08:21 | Inpatient (IN) | payer BC, OTHER ==
[2022-04-21] MEDS ORDERED: SODIUM CHLORIDE 0.9% 1,000 ML IV STA ×3 (08:25→09:52)
--- NOTE | 2022-04-21 08:30 | ED ---
Seizure HPI - General Stated Complaint: Seizure Time Seen by Provider: 04/21/22 08:21 Source: patient, EMS, RN notes reviewed Mode of arrival: EMS - History of Present Illness Initial Comments: 46-year-old female history of syncope in the past one episode of seizure years ago also history of hypertension diabetes and hyperlipidemia who apparently was found have a seizure tonic-clonic in nature lasting somewhere between 30 seconds and 120 seconds. EMS was called. She was postictal with confusion but by the time in the hospital she is awake and alert. She denies any pain fevers chills nausea vomiting sweats she does admit she had not fluids today. No dysuria hematuria no other complaints or modifying factors. Also per paramedics the patient's blood sugar upon evaluation was 186. MD Complaint: seizure - Related Data Home Medications Medication Instructions Recorded Confirmed lisinopriL [Prinivil] 20 mg PO DAILY 03/12/18 04/21/22 metFORMIN HCL [Glucophage] 1,000 mg PO BID 03/12/18 04/21/22 Atorvastatin Calcium [Lipitor] 40 mg PO HS 04/21/22 04/21/22 Cyclobenzaprine HCl 10 mg PO BID PRN 04/21/22 04/21/22 Gabapentin 600 mg PO BID 04/21/22 04/21/22 Insulin NPH Hum/Reg Insulin Hm 75 unit SQ BID 04/21/22 04/21/22 [Novolin 70-30 100 Unit/ml Vial] SUMAtriptan succinate [Imitrex] 25 mg PO BID PRN 04/21/22 04/21/22 Allergies Allergy/AdvReac Type Severity Reaction Status Date / Time amoxicillin [From Augmentin] AdvReac Vomiting Verified 04/21/22 11:29 clavulanic acid AdvReac Vomiting Verified 04/21/22 11:29 [From Augmentin] Review of Systems ROS Statement: Those systems with pertinent positive or pertinent negative responses have been documented in the HPI. ROS Other: All systems not noted in ROS Statement are negative. Past Medical History Past Medical History: Diabetes Mellitus, Hypertension History of Any Multi-Drug Resistant Organisms: None Reported Past Surgical History: Cholecystectomy, Hysterectomy, Tonsillectomy Additional Past Surgical History / Comment(s): partial hysterectomy, extracorporeal shockwave lithotripsy and ureteroscopy with lithotripsy twice Past Anesthesia/Blood Transfusion Reactions: No Reported Reaction Past Psychological History: Depression Past Alcohol Use History: None Reported Past Drug Use History: None Reported - Past Family History Father Family Medical History: Diabetes Mellitus, Myocardial Infarction ([place]) Additional Family Medical History / Comment(s): from [place] in 2007 at 60 years General Exam - General Exam Comments Initial Comments: This is a well-developed well-nourished awake alert oriented 4 female General appearance: alert, in no apparent distress Head exam: Present: atraumatic, normocephalic, normal inspection Eye exam: Present: normal appearance, PERRL, EOMI. Absent: scleral icterus, conjunctival injection, periorbital swelling ENT exam: Present: mucous membranes dry Neck exam: Present: normal inspection, full ROM, other. Absent: tenderness, meningismus, lymphadenopathy Respiratory exam: Present: normal lung sounds bilaterally. Absent: respiratory distress, wheezes, rales, rhonchi, stridor Cardiovascular Exam: Present: normal rhythm, tachycardia, normal heart sounds. Absent: systolic murmur, diastolic murmur, rubs, gallop, clicks GI/Abdominal exam: Present: soft, normal bowel sounds. Absent: distended, tenderness, guarding, rebound, rigid, bruit, pulsatile mass Extremities exam: Present: normal inspection, full ROM, normal capillary refill. Absent: tenderness, pedal edema, joint swelling, calf tenderness Back exam: Present: normal inspection Neurological exam: Present: alert, oriented X3, CN II-XII intact Psychiatric exam: Present: normal affect, normal mood Skin exam: Present: warm, dry, intact, normal color. Absent: rash Course Vital Signs 04/21/22 04/21/22 04/21/22 08:24 08:37 09:58 Temperature 97.9 F Pulse Rate 133 H 131 H 123 H Respiratory 22 18 18 Rate Blood Pressure 151/104 127/94 121/93 O2 Sat by Pulse 96 98 99 Oximetry 04/21/22 11:57 Temperature Pulse Rate 120 H Respiratory 18 Rate Blood Pressure 121/91 O2 Sat by Pulse 97 Oximetry - Reevaluation(s) Reevaluation #1: 04/21/22 08:30 Patient was found be tachycardic she states she generally hasn't had a heart rate sometimes higher than 100 sometimes up as high as 120. He denies any known history of cardiac disease. Reevaluation #2: 04/21/22 13:16 Patient rested comfortably throughout the morning I did discuss the initial findings with the patient and her mother was present. After discussion with Dr. Haque patient was noted have a tonic-clonic seizure lasting approximately 2 minutes. There was left lateral gaze. Patient was given IV Keppra as well as IV Ativan prior to this. Medical Decision Making - Lab Data Result diagrams: 04/21/22 08:33 04/21/22 08:33 Lab Results 04/21/22 04/21/22 04/21/22 Range/Units 08:33 08:33 08:33 WBC 9.4 (3.8-10.6) k/uL RBC 3.87 (3.80-5.40) m/uL Hgb 11.1 L (11.4-16.0) gm/dL Hct 35.2 (34.0-46.0) % MCV 90.9 (80.0-100.0) fL MCH 28.6 (25.0-35.0) pg MCHC 31.5 (31.0-37.0) g/dL RDW 15.5 (11.5-15.5) % Plt Count 397 (150-450) k/uL MPV 6.8 Neutrophils % 62 % Lymphocytes % 24 % Monocytes % 9 % Eosinophils % 3 % Basophils % 1 % Neutrophils # 5.8 (1.3-7.7) k/uL Lymphocytes # 2.3 (1.0-4.8) k/uL Monocytes # 0.8 (0-1.0) k/uL Eosinophils # 0.3 (0-0.7) k/uL Basophils # 0.1 (0-0.2) k/uL Hypochromasia Moderate D-Dimer (<0.60) mg/L FEU Sodium 134 L (137-145) mmol/L Potassium 4.5 (3.5-5.1) mmol/L Chloride 103 (98-107) mmol/L Carbon Dioxide 19 L (22-30) mmol/L Anion Gap 12 mmol/L BUN 14 (7-17) mg/dL Creatinine 0.67 (0.52-1.04) mg/dL Est GFR (CKD-EPI)AfAm >90 (>60 ml/min/1.73 sqM) Est GFR (CKD-EPI)NonAf >90 (>60 ml/min/1.73 sqM) Glucose 235 H (74-99) mg/dL Lactic Ac Sepsis Rflx Plasma Lactic Acid Stiven 4.3 H* (0.7-2.0) mmol/L Calcium 9.9 (8.4-10.2) mg/dL Magnesium 1.3 L (1.6-2.3) mg/dL Total Bilirubin 0.5 (0.2-1.3) mg/dL AST 51 H (14-36) U/L ALT 44 H (4-34) U/L Alkaline Phosphatase 119 (38-126) U/L Creatine Kinase 37 (30-135) U/L Total Protein 7.6 (6.3-8.2) g/dL Albumin 4.2 (3.5-5.0) g/dL TSH 3.210 (0.465-4.680) mIU/L Urine Color Urine Appearance (Clear) Urine pH (5.0-8.0) Ur Specific [place] (1.001-1.035) Urine Protein (Negative) Urine Glucose (UA) (Negative) Urine Ketones (Negative) Urine Blood (Negative) Urine Nitrite (Negative) Urine Bilirubin (Negative) Urine Urobilinogen (<2.0) mg/dL Ur Leukocyte Esterase (Negative) Urine Opiates Screen (NotDetected) Ur Oxycodone Screen (NotDetected) Urine Methadone Screen (NotDetected) Ur Propoxyphene Screen (NotDetected) Ur Barbiturates Screen (NotDetected) U Tricyclic Antidepress (NotDetected) Ur Phencyclidine Scrn (NotDetected) Ur Amphetamines Screen (NotDetected) U Methamphetamines Scrn (NotDetected) U Benzodiazepines Scrn (NotDetected) Urine Cocaine Screen (NotDetected) U Marijuana (THC) Screen (NotDetected) 04/21/22 04/21/22 04/21/22 Range/Units 08:41 09:02 10:15 WBC (3.8-10.6) k/uL RBC (3.80-5.40) m/uL Hgb (11.4-16.0) gm/dL Hct (34.0-46.0) % MCV (80.0-100.0) fL MCH (25.0-35.0) pg MCHC (31.0-37.0) g/dL RDW (11.5-15.5) % Plt Count (150-450) k/uL MPV Neutrophils % % Lymphocytes % % Monocytes % % Eosinophils % % Basophils % % Neutrophils # (1.3-7.7) k/uL Lymphocytes # (1.0-4.8) k/uL Monocytes # (0-1.0) k/uL Eosinophils # (0-0.7) k/uL Basophils # (0-0.2) k/uL Hypochromasia D-Dimer 0.29 (<0.60) mg/L FEU Sodium (137-145) mmol/L Potassium (3.5-5.1) mmol/L Chloride (98-107) mmol/L Carbon Dioxide (22-30) mmol/L Anion Gap mmol/L BUN (7-17) mg/dL Creatinine (0.52-1.04) mg/dL Est GFR (CKD-EPI)AfAm (>60 ml/min/1.73 sqM) Est GFR (CKD-EPI)NonAf (>60 ml/min/1.73 sqM) Glucose (74-99) mg/dL Lactic Ac Sepsis Rflx Y Plasma Lactic Acid Stiven (0.7-2.0) mmol/L Calcium (8.4-10.2) mg/dL Magnesium (1.6-2.3) mg/dL Total Bilirubin (0.2-1.3) mg/dL AST (14-36) U/L ALT (4-34) U/L Alkaline Phosphatase (38-126) U/L Creatine Kinase (30-135) U/L Total Protein (6.3-8.2) g/dL Albumin (3.5-5.0) g/dL TSH (0.465-4.680) mIU/L Urine Color Light Yellow Urine Appearance Clear (Clear) Urine pH 5.5 (5.0-8.0) Ur Specific [place] 1.015 (1.001-1.035) Urine Protein Trace H (Negative) Urine Glucose (UA) 3+ H (Negative) Urine Ketones Trace H (Negative) Urine Blood Negative (Negative) Urine Nitrite Negative (Negative) Urine Bilirubin Negative (Negative) Urine Urobilinogen <2.0 (<2.0) mg/dL Ur Leukocyte Esterase Negative (Negative) Urine Opiates Screen Detected H (NotDetected) Ur Oxycodone Screen Not Detected (NotDetected) Urine Methadone Screen Not Detected (NotDetected) Ur Propoxyphene Screen Not Detected (NotDetected) Ur Barbiturates Screen Not Detected (NotDetected) U Tricyclic Antidepress Detected H (NotDetected) Ur Phencyclidine Scrn Not Detected (NotDetected) Ur Amphetamines Screen Not Detected (NotDetected) U Methamphetamines Scrn Not Detected (NotDetected) U Benzodiazepines Scrn Detected H (NotDetected) Urine Cocaine Screen Not Detected (NotDetected) U Marijuana (THC) Screen Not Detected (NotDetected) 04/21/22 Range/Units 12:10 WBC (3.8-10.6) k/uL RBC (3.80-5.40) m/uL Hgb (11.4-16.0) gm/dL Hct (34.0-46.0) % MCV (80.0-100.0) fL MCH (25.0-35.0) pg MCHC (31.0-37.0) g/dL RDW (11.5-15.5) % Plt Count (150-450) k/uL MPV Neutrophils % % Lymphocytes % % Monocytes % % Eosinophils % % Basophils % % Neutrophils # (1.3-7.7) k/uL Lymphocytes # (1.0-4.8) k/uL Monocytes # (0-1.0) k/uL Eosinophils # (0-0.7) k/uL Basophils # (0-0.2) k/uL Hypochromasia D-Dimer (<0.60) mg/L FEU Sodium (137-145) mmol/L Potassium (3.5-5.1) mmol/L Chloride (98-107) mmol/L Carbon Dioxide (22-30) mmol/L Anion Gap mmol/L BUN (7-17) mg/dL Creatinine (0.52-1.04) mg/dL Est GFR (CKD-EPI)AfAm (>60 ml/min/1.73 sqM) Est GFR (CKD-EPI)NonAf (>60 ml/min/1.73 sqM) Glucose (74-99) mg/dL Lactic Ac Sepsis Rflx Plasma Lactic Acid Stiven 2.8 H* (0.7-2.0) mmol/L Calcium (8.4-10.2) mg/dL Magnesium (1.6-2.3) mg/dL Total Bilirubin (0.2-1.3) mg/dL AST (14-36) U/L ALT (4-34) U/L Alkaline Phosphatase (38-126) U/L Creatine Kinase (30-135) U/L Total Protein (6.3-8.2) g/dL Albumin (3.5-5.0) g/dL TSH (0.465-4.680) mIU/L Urine Color Urine Appearance (Clear) Urine pH (5.0-8.0) Ur Specific [place] (1.001-1.035) Urine Protein (Negative) Urine Glucose (UA) (Negative) Urine Ketones (Negative) Urine Blood (Negative) Urine Nitrite (Negative) Urine Bilirubin (Negative) Urine Urobilinogen (<2.0) mg/dL Ur Leukocyte Esterase (Negative) Urine Opiates Screen (NotDetected) Ur Oxycodone Screen (NotDetected) Urine Methadone Screen (NotDetected) Ur Propoxyphene Screen (NotDetected) Ur Barbiturates Screen (NotDetected) U Tricyclic Antidepress (NotDetected) Ur Phencyclidine Scrn (NotDetected) Ur Amphetamines Screen (NotDetected) U Methamphetamines Scrn (NotDetected) U Benzodiazepines Scrn (NotDetected) Urine Cocaine Screen (NotDetected) U Marijuana (THC) Screen (NotDetected) - EKG Data -: EKG Interpreted by Me EKG Comments: Sinus tachycardia rate 131. Interval 182 QRS duration 90 QT since QTC 3:30/390 evidence of left axis deviation Critical Care Time Critical Care Time: Yes Total Critical Care Time: 31 Critical Care Time: Time includes initial presentation with history physical labs x-rays multiple reevaluation the patient discussion with the patient family discuss with the admitting physician reevaluation the patient during and after the seizure that was noted in the emergency department documentation the above and admission orders Disposition Clinical Impression: Generalized seizure, Hypomagnesemia, Dehydration Disposition: ADMITTED IP TO THIS HOSP Condition: Fair Referrals: Linus Lundberg MD [Primary Care Provider] - 1-2 days Decision Date: 04/21/22 Decision Time: 13:00
[2022-04-21 08:44] LABS: Basophils # (A) 0.1 k/uL (0-0.2); Basophils % (A) 1 %; Eosinophils # (A) 0.3 k/uL (0-0.7); Eosinophils % (A) 3 %; HCT 35.2 % (34.0-46.0); HGB 11.1 gm/dL (11.4-16.0); Hypochromasia Moderate; Lymphocytes # (A) 2.3 k/uL (1.0-4.8); Lymphocytes % (A) 24 %; MCH 28.6 pg (25.0-35.0); MCHC 31.5 g/dL (31.0-37.0); MCV 90.9 fL (80.0-100.0); Mean Platelet Volume 6.8; Monocytes # (A) 0.8 k/uL (0-1.0); Monocytes % (A) 9 %; Neutrophils # (A) 5.8 k/uL (1.3-7.7); Neutrophils % (A) 62 %; Platelet Count 397 k/uL (150-450); RBC 3.87 m/uL (3.80-5.40); RDW 15.5 % (11.5-15.5); WBC 9.4 k/uL (3.8-10.6)
[2022-04-21] MEDS ORDERED: ONDANSETRON 4 MG/2 ML VIAL IVP STA ×2 (08:45→15:10)
[2022-04-21 08:55] LABS: ALT 44 U/L (4-34); AST 51 U/L (14-36); African American GFR (CKD) >90 (>60 ml/min/1.73 sqM); Albumin 4.2 g/dL (3.5-5.0); Alkaline Phosphatase 119 U/L (38-126); Anion Gap 12 mmol/L; Blood Urea Nitrogen 14 mg/dL (7-17); Calcium 9.9 mg/dL (8.4-10.2); Carbon Dioxide 19 mmol/L (22-30); Chloride 103 mmol/L (98-107); Creatine Kinase 37 U/L (30-135); Glucose 235 mg/dL (74-99); Magnesium 1.3 mg/dL (1.6-2.3); Non-African American GFR(CKD) >90 (>60 ml/min/1.73 sqM); Potassium 4.5 mmol/L (3.5-5.1); Sodium 134 mmol/L (137-145); Total Bilirubin 0.5 mg/dL (0.2-1.3); Total Protein 7.6 g/dL (6.3-8.2)
--- NOTE | 2022-04-21 09:16 | CT ---
EXAMINATION TYPE: CT brain wo con CT DLP: 1099.5 mGycm, Automated exposure control for dose reduction was used. DATE OF EXAM: 04/21/2022 9:04 AM COMPARISON: None. CLINICAL INDICATION:Female, 46 years old with history of seizure activity, Seizure TECHNIQUE: Brain: Multiple axial CT images of the brain were obtained without IV contrast. Coronal and sagittal reformats reviewed. FINDINGS: Brain: Extra-axial spaces: No abnormal extra-axial fluid collections. Ventricular system: Ex vacuo dilatation of the anterior horn of the right lateral ventricle. Cerebral parenchyma: No acute intraparenchymal hemorrhage or mass effect. Remote injury to the right insula. The barker-white junction is well differentiated. Cerebellum: Unremarkable. Mass effect: No evidence of midline shift. Intracranial vasculature: unremarkable Soft tissues: Normal. Calvarium/osseous structures: No depressed skull fracture. Paranasal sinuses and mastoid air cells: Clear Visualized orbits: Orbital contents are intact. IMPRESSION: No acute intracranial process. Remote injury to the right insula.
--- NOTE | 2022-04-21 09:17 | XR ---
EXAMINATION TYPE: XR chest 2V DATE OF EXAM: 04/21/2022 COMPARISON: NONE HISTORY: Seizure and tachycardia TECHNIQUE: Frontal and lateral views of the chest are obtained. FINDINGS: There is no focal air space opacity, pleural effusion, or pneumothorax seen. The cardiac silhouette size is within normal limits. There are overlying leads. The lung volumes are low. The os seous structures are intact. IMPRESSION: No acute cardiopulmonary process.
[2022-04-21] MEDS: MAGNESIUM SULFATE-D5W PMX 1 GM in DEXTROSE/WATER 1 100ML.BAG IVPB SCH ×2 (10:43→13:00)
[2022-04-21 11:10] LABS: Appearance,Urine Clear (Clear); Bilirubin,Urine Negative (Negative); Blood,Urine Negative (Negative); Color,Urine Light Yellow; Glucose,Urine (UA) 3+ (Negative); Ketones,Urine Trace (Negative); Leukocyte Esterase,Urine Negative (Negative); Nitrite,Urine Negative (Negative); PH, Urine 5.5 (5.0-8.0); Protein,Urine Trace (Negative); Specific Gravity,Urine 1.015 (1.001-1.035); Urobilinogen,Urine <2.0 mg/dL (<2.0)
[2022-04-21 11:52] LABS: Amphetamine Screen,Urine Not Detected (NotDetected); Barbiturate Screen,Urine Not Detected (NotDetected); Benzodiazepines Screen,Urine Detected (NotDetected); Cocaine Screen,Urine Not Detected (NotDetected); Methadone Screen, Urine Not Detected (NotDetected); Opiate Screen,Urine Detected (NotDetected); Oxycodone Screen, Urine Not Detected (NotDetected); Phencyclidine Screen,Urine Not Detected (NotDetected); Tricyclic Antidepressant,Urine Detected (NotDetected); Urn Cannabinoid Scrn Not Detected (NotDetected)
[2022-04-21] MEDS ORDERED: LORazepam 2 MG/ML INJ IV STA (13:04)
[2022-04-21] MEDS ORDERED: levETIRAcetam IV 1,500 MG in SALINE 1 100ML.BAG IVPB STA (13:06)
[2022-04-21] MEDS ORDERED: NALOXONE 0.4 MG/ML 1 ML VIAL IV PRN (13:19)
[2022-04-21] MEDS ORDERED: CYCLOBENZAPRINE 10 MG TAB PO PRN (13:21)
[2022-04-21] MEDS ORDERED: LORazepam 2 MG/ML INJ IV PRN (13:37)
--- NOTE | 2022-04-21 13:39 | P.HPIM ---
History of Present Illness H&P Date: 04/21/22 Chief Complaint: Seizure 46-year-old woman with a medical history of hypertension, diabetes, hyperlipidemia, migraines, depression, recently started on Wellbutrin presented with seizure. Patient says that she had a seizure once before approximately 8 years ago when she was a movie theater, is not sure of inciting event. She does not drink or do drugs. She was recently started on Wellbutrin for her depression approximately 2 weeks ago. Her mother found her having a tonic- clonic seizure which lasted approximately 2 minutes with postictal confusion and was subsequently brought into the hospital for further evaluation. While she is in the hospital and during my evaluation patient had another one and a half minute seizure which was tonic clonic nature. During this episode, she did have desaturation of 85% which recovered quickly with nonrebreather. Patient was given 2 mg of Ativan and loaded with Keppra. She'll be admitted to our service with neurology consult. In the emergency room, patient is afebrile, 151/104, heart rate 120-133. Lab work demonstrates mild anemia down to 11.1. Chemistries show mild hyponatremia, mild acidosis without an anion gap, elevated glucose to 235. Patient has a low magnesium down to 1.3. Patient's LFTs show mild elevation with AST/ALT of 51/44. TSH was 3.2. D-dimer was 0.29. Initial lactic acid was 4.3, improved to 2.8 upon repeat. UA shows trace protein, 3+ glucose, trace ketones. Urine tox screen demonstrates positive opiates, tricyclic antidepressants, benzodiazepines. Brain CT does not show any acute intracranial process but shows a remote injury to the right insula. Chest x-ray is clear. EKG demonst rates sinus tachycardia with a mild left axis deviation. All Systems reviewed and pertinent positives and negatives noted in HPI, all other symptoms are negative Gen: in no apparent distress, resting comfortably in bed Eyes: PERRL, no scleral injection or icterus HENT: normocephalic, atraumatic, good hearing acuity, moist mucous membranes Neck: no tracheal deviation, full range of motion Resp: good air exchange, breathing comfortably with no accessory muscle use, no tactile fremitus CVS: good distal perfusion x 4, no pitting edema GI: soft, NTTP, ND, no hepatosplenomegaly : no suprapubic tenderness, no CVAT, cobb catheter not present MSK: no clubbing, no cyanosis, no noted contractures of extremities Skin: no noted rashes, petechiae; temperature of skin is appropriate Neuro: moving all extremities without signs of weakness, CN II-XII intact Psych: cooperative, euthymic mood, insight and judgment intact Labs and imaging reviewed as above Assessment/plan: Seizures, tonic-clonic (Possibly triggered by initiation of Wellbutrin for depression) -Admit inpatient, telemetry -Neurology consult -Loaded Keppra 1500 mg, 500 twice a day -Ativan when necessary for seizures -Seizure precautions -EEG -MRI Hypertension Hyperlipidemia Diabetes Migraines Depression -Home medications reviewed and reconciled -Discontinue Wellbutrin Patient is full code DVT prophylaxis with early ambulation Past Medical History Past Medical History: Diabetes Mellitus, Hypertension Additional Past Medical History / Comment(s): 1 seizure History of Any Multi-Drug Resistant Organisms: None Reported Past Surgical History: Cholecystectomy, Hysterectomy, Tonsillectomy Additional Past Surgical History / Comment(s): partial hysterectomy, extracorporeal shockwave lithotripsy and ureteroscopy with lithotripsy twice Past Anesthesia/Blood Transfusion Reactions: No Reported Reaction Past Psychological History: Depression Past Alcohol Use History: None Reported Past Drug Use History: None Reported - Past Family History Father Family Medical History: Diabetes Mellitus, Myocardial Infarction ([place]) Additional Family Medical History / Comment(s): from [place] in 2007 at 60 years Medications and Allergies Home Medications Medication Instructions Recorded Confirmed Type lisinopriL [Prinivil] 20 mg PO DAILY 03/12/18 04/21/22 History metFORMIN HCL [Glucophage] 1,000 mg PO BID 03/12/18 04/21/22 History Atorvastatin Calcium [Lipitor] 40 mg PO HS 04/21/22 04/21/22 History Cyclobenzaprine HCl 10 mg PO BID PRN 04/21/22 04/21/22 History Gabapentin 600 mg PO BID 04/21/22 04/21/22 History Insulin NPH Hum/Reg Insulin Hm 75 unit SQ BID 04/21/22 04/21/22 History [Novolin 70-30 100 Unit/ml Vial] SUMAtriptan succinate [Imitrex] 25 mg PO BID PRN 04/21/22 04/21/22 History Allergies Allergy/AdvReac Type Severity Reaction Status Date / Time amoxicillin [From Augmentin] AdvReac Vomiting Verified 04/21/22 11:29 clavulanic acid AdvReac Vomiting Verified 04/21/22 11:29 [From Augmentin] Physical Exam Osteopathic Statement: *. No significant issues noted on an osteopathic structural exam other than those noted in the History and Physical/Consult. Vitals: Vital Signs Temp Pulse Resp BP Pulse Ox 04/21/22 11:57 120 H 18 121/91 97 04/21/22 09:58 123 H 18 121/93 99 04/21/22 08:37 131 H 18 127/94 98 04/21/22 08:24 97.9 F 133 H 22 151/104 96 Intake and Output 04/20/22 04/21/22 04/21/22 22:59 06:59 14:59 Other: Weight 87.997 kg Results CBC & Chem 7: 04/21/22 08:33 04/21/22 08:33 Labs: Abnormal Lab Results - Last 24 Hours (Table) 04/21/22 04/21/22 04/21/22 Range/Units 08:33 08:33 08:33 Hgb 11.1 L (11.4-16.0) gm/dL Sodium 134 L (137-145) mmol/L Carbon Dioxide 19 L (22-30) mmol/L Glucose 235 H (74-99) mg/dL Plasma Lactic Acid Stiven 4.3 H* (0.7-2.0) mmol/L Magnesium 1.3 L (1.6-2.3) mg/dL AST 51 H (14-36) U/L ALT 44 H (4-34) U/L Urine Protein (Negative) Urine Glucose (UA) (Negative) Urine Ketones (Negative) Urine Opiates Screen (NotDetected) U Tricyclic Antidepress (NotDetected) U Benzodiazepines Scrn (NotDetected) 04/21/22 04/21/22 Range/Units 10:15 12:10 Hgb (11.4-16.0) gm/dL Sodium (137-145) mmol/L Carbon Dioxide (22-30) mmol/L Glucose (74-99) mg/dL Plasma Lactic Acid Stiven 2.8 H* (0.7-2.0) mmol/L Magnesium (1.6-2.3) mg/dL AST (14-36) U/L ALT (4-34) U/L Urine Protein Trace H (Negative) Urine Glucose (UA) 3+ H (Negative) Urine Ketones Trace H (Negative) Urine Opiates Screen Detected H (NotDetected) U Tricyclic Antidepress Detected H (NotDetected) U Benzodiazepines Scrn Detected H (NotDetected)
[2022-04-21 17:06] LABS: Glucose,Whole Blood 211 mg/dL (70-110)
[2022-04-21] MEDS: INSULIN ASPART (NovoLOG) 100 UNIT/ML VIAL SQ SCH (17:57)
[2022-04-21] MEDS: INSULN ASP PRT/INSULIN ASPART 100 UNIT/ML 10 ML VIAL SQ SCH (17:57)
[2022-04-21] MEDS ORDERED: NON FORMULARY DRUG (Metformin Hcl [Glucophage] 1,000 MG Tablet) PO SCH (21:00)
[2022-04-21] MEDS: GABAPENTIN 300 MG CAP PO SCH (22:55)
[2022-04-21] MEDS: levETIRAcetam IV 500 MG in SODIUM CHLORIDE 0.9% 100 ML IVPB SCH (22:56)
[2022-04-21] MEDS: ATORVASTATIN 40 MG TAB PO SCH (22:56)
[2022-04-21] MEDS: ACETAMINOPHEN TAB 325 MG TAB PO PRN (22:56)
[2022-04-22 07:01] LABS: African American GFR (CKD) >90 (>60 ml/min/1.73 sqM); Anion Gap 6 mmol/L; Blood Urea Nitrogen 13 mg/dL (7-17); Calcium 8.8 mg/dL (8.4-10.2); Carbon Dioxide 20 mmol/L (22-30); Chloride 110 mmol/L (98-107); Glucose 113 mg/dL (74-99); Magnesium 1.8 mg/dL (1.6-2.3); Non-African American GFR(CKD) >90 (>60 ml/min/1.73 sqM); Potassium 4.4 mmol/L (3.5-5.1); Sodium 136 mmol/L (137-145)
[2022-04-22 07:02] LABS: Anisocytosis Slight; Basophils % (A) 1 %; Eosinophils # (A) 0.1 k/uL (0-0.7); Eosinophils % (A) 1 %; HCT 32.2 % (34.0-46.0); HGB 10.2 gm/dL (11.4-16.0); Hypochromasia Slight; Lymphocytes # (A) 2.4 k/uL (1.0-4.8); Lymphocytes % (A) 24 %; MCH 28.6 pg (25.0-35.0); MCHC 31.7 g/dL (31.0-37.0); MCV 90.2 fL (80.0-100.0); Mean Platelet Volume 7.4; Monocytes # (A) 0.7 k/uL (0-1.0); Monocytes % (A) 8 %; Neutrophils # (A) 6.4 k/uL (1.3-7.7); Neutrophils % (A) 65 %; Platelet Count 397 k/uL (150-450); RBC 3.58 m/uL (3.80-5.40); RDW 16.2 % (11.5-15.5); WBC 9.9 k/uL (3.8-10.6)
[2022-04-22 07:46] LABS: Glucose,Whole Blood 136 mg/dL (70-110)
[2022-04-22] MEDS: INSULIN ASPART (NovoLOG) 100 UNIT/ML VIAL SQ SCH ×3 (07:46→18:03)
[2022-04-22] MEDS: ACETAMINOPHEN TAB 325 MG TAB PO PRN (07:54)
[2022-04-22] MEDS: GABAPENTIN 300 MG CAP PO SCH ×2 (07:54→21:15)
[2022-04-22] MEDS: levETIRAcetam IV 500 MG in SODIUM CHLORIDE 0.9% 100 ML IVPB SCH (07:55)
[2022-04-22] MEDS: lisinopriL 20 MG TAB PO SCH (07:56)
--- NOTE | 2022-04-22 08:16 | P.CNNES ---
History of Present Illness Consult date: 04/21/22 Requesting physician: Sacha Luciano Reason for Consult: Seizure History of Present Illness: Patient is a 46-year-old female, who has history of a solitary seizure 8 years ago, when she was in a movie theater, not feeling well, then vomited and had a full-blown seizure, in which she lost control of bladder, but not tongue bite. She vomited. Patient saw her primary physician, who performed EEG, which according to the patient was normal, was not placed on any seizure medication. She has been seizure-free, until had a second seizure [employer] today. Patient arrived by ambulance today at 8:21 AM. According to EMS flow sheet when they arrived, found patient in her bed on her side with her legs on the floor. Patient's mother stated that she was up normal routine this morning and she went into her bedroom and heard her scream out and when opened the door, found her shaking with full body seizure. Patient bit her tongue. Patient appeared postictal when EMS arrived. There was no verbal response. Patient's blood pressure was 161/106, pulse rate 128 respiration 16 saturation 98%. Her blood glucose was 186. Patient's mentation improved and was able to follow commands subsequently. Patient was brought to the hospital. While in the ER, and patient was being evaluated by the primary physician, when patient had a witnessed second seizure, that lasted for about 1.5 minutes. It was a tonic- clonic seizure. She did desaturate to 85%. Patient was given 2 mg Ativan and was loaded with Keppra. Patient did lose control of urine with a second seizure, also bit her tongue. I spoke to Dr. Luciano, who mentioned that her gaze deviated to the left during the seizure. When I came and saw the patient, patient was fully alert and awake. She had just vomited. Patient does have history of headaches, perhaps migraines. Patient denies any alcohol use, tobacco or marijuana. Patient does have history of depression. She has been on Prozac 80 mg daily for almost a year. She was on olanzapine, but because of weight gain, she was switched to Wellbutrin 150 mg every day by her psychiatrist, about 2 weeks ago. Patient agreed that she woke up in the morning as usual, was putting makeup on, getting ready for work when she had a seizure. Patient has history of anxiety, diabetes, hormonal imbalance with PCOS. Review of Systems Complains of headache, just had vomiting. Patient has history of migraines. Complains of sore tongue from recent tongue bite. All other 14 point severe systems reviewed and unremarkable except as mentioned in HPI. Past Medical History Past Medical History: Diabetes Mellitus, Hypertension Additional Past Medical History / Comment(s): 1 seizure History of Any Multi-Drug Resistant Organisms: None Reported Past Surgical History: Cholecystectomy, Hysterectomy, Tonsillectomy Additional Past Surgical History / Comment(s): partial hysterectomy, extracorporeal shockwave lithotripsy and ureteroscopy with lithotripsy twice Past Anesthesia/Blood Transfusion Reactions: No Reported Reaction Past Psychological History: Depression Past Alcohol Use History: None Reported Past Drug Use History: None Reported - Past Family History Father Family Medical History: Diabetes Mellitus, Myocardial Infarction ([place]) Additional Family Medical History / Comment(s): from [place] in 2007 at 60 years Medications and Allergies Home Medications Medication Instructions Recorded Confirmed Type lisinopriL [Prinivil] 20 mg PO DAILY 03/12/18 04/21/22 History metFORMIN HCL [Glucophage] 1,000 mg PO BID 03/12/18 04/21/22 History Atorvastatin Calcium [Lipitor] 40 mg PO HS 04/21/22 04/21/22 History Cyclobenzaprine HCl 10 mg PO BID PRN 04/21/22 04/21/22 History Gabapentin 600 mg PO BID 04/21/22 04/21/22 History Insulin NPH Hum/Reg Insulin Hm 75 unit SQ BID 04/21/22 04/21/22 History [Novolin 70-30 100 Unit/ml Vial] SUMAtriptan succinate [Imitrex] 25 mg PO BID PRN 04/21/22 04/21/22 History Allergies Allergy/AdvReac Type Severity Reaction Status Date / Time amoxicillin [From Augmentin] AdvReac Vomiting Verified 04/21/22 11:29 clavulanic acid AdvReac Vomiting Verified 04/21/22 11:29 [From Augmentin] Physical Examination - Vital Signs Vital Signs: Vital Signs Temp Pulse Resp BP Pulse Ox 04/21/22 11:57 120 H 18 121/91 97 04/21/22 09:58 123 H 18 121/93 99 04/21/22 08:37 131 H 18 127/94 98 04/21/22 08:24 97.9 F 133 H 22 151/104 96 Intake and Output 04/20/22 04/21/22 04/21/22 22:59 06:59 14:59 Other: Weight 87.997 kg Patient is a middle aged female, in no acute distress. Patient is alert awake oriented to time place and person. Speech and language f unctions are normal. Attention, concentration and fund of knowledge is adequate. On cranial examination, pupils are round and reacting to light, visual russell are full on confrontation, extraocular muscles are intact with no nystagmus. Face is symmetric, tongue protrudes to the midline. Palatal elevation and sensation normal, hearing and shoulder shrug normal, facial sensation normal. Shoulder shrug normal. On muscle strength testing, there is no pronator drift and the strength is normal in arms and legs distally and proximally, except hip flexion which is 4- bilaterally. Deep tendon reflexes are symmetric, 1 in the upper limbs at biceps and brachioradialis, 2+ at the knees, 1+ ankles and plantars are upgoing bilaterally, likely due to postictal effect. Sensory to touch is equal with no neglect. Cerebellar function showed no ataxia for [id number] testing. No dysdiadochokinesia. Tone and bulk of muscles normal. Gait deferred. On general examination, there is no carotid bruit or murmur, S1-S2 audible. Abdomen is soft nontender. No organomegaly, bowel sounds present. Chest is clear. Peripheral pulses are present. No edema. Results - Laboratory Findings CBC and BMP: 04/22/22 05:41 04/22/22 05:41 Abnormal Lab Findings: Abnormal Labs 04/21/22 04/21/22 04/21/22 08:33 08:33 08:33 Hgb 11.1 L Sodium 134 L Carbon Dioxide 19 L Glucose 235 H Plasma Lactic Acid Stiven 4.3 H* Magnesium 1.3 L AST 51 H ALT 44 H Urine Protein Urine Glucose (UA) Urine Ketones Urine Opiates Screen U Tricyclic Antidepress U Benzodiazepines Scrn 04/21/22 04/21/22 10:15 12:10 Hgb Sodium Carbon Dioxide Glucose Plasma Lactic Acid Stiven 2.8 H* Magnesium AST ALT Urine Protein Trace H Urine Glucose (UA) 3+ H Urine Ketones Trace H Urine Opiates Screen Detected H U Tricyclic Antidepress Detected H U Benzodiazepines Scrn Detected H Assessment and Plan Assessment: * Breakthrough seizures 2 (witnessed by mother at home and then second seizure witnessed by ED staff in ER). Seizures likely due to lowered seizure th reshold from Wellbutrin, that was started 2 weeks ago. Patient has history of a solitary seizure 8 years ago, which was of unclear etiology, not placed on AED at that time. * Depression * Diabetes * PCOS Plan: * Agree with checking MRI of the brain to rule out any structural abnormality. * EEG will be done shortly, will review the results. * As patient had a second grand mal seizure within 24 hours, therefore patient has been loaded with Keppra 1500 mg IV PB once and started on Keppra 500 mg every 12 hours. * Discontinue Wellbutrin. * Neurology will follow. Thank you for the consult.
[2022-04-22] MEDS: SUMAtriptan succinate 25 MG TAB PO PRN ×2 (09:34→18:07)
[2022-04-22] MEDS: INSULN ASP PRT/INSULIN ASPART 100 UNIT/ML 10 ML VIAL SQ SCH ×2 (09:40→18:31)
[2022-04-22 11:46] LABS: Glucose,Whole Blood 139 mg/dL (70-110)
--- NOTE | 2022-04-22 12:20 | P.PN ---
Subjective Progress Note Date: 04/22/22 Patient is doing okay today. Complaining of splitting headache. Also complaining of feeling extremely worn out. She has not had any further seizures since her episode in the emergency room. EEG, MRI are pending. Gen: in no apparent distress, resting comfortably in bed Eyes: PERRL, no scleral injection or icterus HENT: normocephalic, atraumatic, good hearing acuity, moist mucous membranes Neck: no tracheal deviation, full range of motion Resp: good air exchange, breathing comfortably with no accessory muscle use, no tactile fremitus CVS: good distal perfusion x 4, no pitting edema GI: soft, NTTP, ND, no hepatosplenomegaly : no suprapubic tenderness, no CVAT, cobb catheter not present MSK: no clubbing, no cyanosis, no noted contractures of extremities Skin: no noted rashes, petechiae; temperature of skin is appropriate Neuro: moving all extremities without signs of weakness, CN II-XII intact Psych: cooperative, euthymic mood, insight and judgment intact Labs and imaging reviewed as above Assessment/plan: Seizures, tonic-clonic (Possibly triggered by initiation of Wellbutrin for depression) -Admit inpatient, telemetry -Neurology consult -Loaded Keppra 1500 mg, 500 twice a day -Ativan when necessary for seizures -Seizure precautions -EEG -MRI Hypertension Hyperlipidemia Diabetes Migraines Depression -Home medications reviewed and reconciled -Discontinue Wellbutrin Patient is full code DVT prophylaxis with early ambulation Objective - Vital Signs Vital signs: Vital Signs Temp 98.6 F 04/22/22 11:27 Pulse 102 H 04/22/22 11:27 Resp 16 04/22/22 11:27 BP 114/77 04/22/22 11:27 Pulse Ox 96 04/22/22 11:27 FiO2 Intake & Output 04/21/22 04/22/22 04/22/22 18:59 06:59 18:59 Intake Total 280 Balance 280 Weight 87.997 kg 97.069 kg Intake: IV 180 0.9 180 Intake, IV Titration 100 Amount levETIRAcetam IV 500 mg 100 In Sodium Chloride 0.9% 100 ml @ 400 mls/hr IVPB Q12HR [facility] Rx#:[id number] Other: Voiding Method Toilet Toilet # Voids 2 - Labs CBC & Chem 7: 04/22/22 05:41 04/22/22 05:41 Labs: Abnormal Lab Results - Last 24 Hours (Table) 04/21/22 04/21/22 04/21/22 Range/Units 12:10 15:05 17:04 RBC (3.80-5.40) m/uL Hgb (11.4-16.0) gm/dL Hct (34.0-46.0) % RDW (11.5-15.5) % Sodium (137-145) mmol/L Chloride (98-107) mmol/L Carbon Dioxide (22-30) mmol/L Glucose (74-99) mg/dL POC Glucose (mg/dL) 211 H (70-110) mg/dL Plasma Lactic Acid Stiven 2.8 H* 4.5 H* (0.7-2.0) mmol/L 04/21/22 04/21/22 04/22/22 Range/Units 17:51 21:08 05:41 RBC 3.58 L (3.80-5.40) m/uL Hgb 10.2 L (11.4-16.0) gm/dL Hct 32.2 L (34.0-46.0) % RDW 16.2 H (11.5-15.5) % Sodium (137-145) mmol/L Chloride (98-107) mmol/L Carbon Dioxide (22-30) mmol/L Glucose (74-99) mg/dL POC Glucose (mg/dL) (70-110) mg/dL Plasma Lactic Acid Stiven 3.2 H* 2.5 H* (0.7-2.0) mmol/L 04/22/22 04/22/22 04/22/22 Range/Units 05:41 07:42 11:29 RBC (3.80-5.40) m/uL Hgb (11.4-16.0) gm/dL Hct (34.0-46.0) % RDW (11.5-15.5) % Sodium 136 L (137-145) mmol/L Chloride 110 H (98-107) mmol/L Carbon Dioxide 20 L (22-30) mmol/L Glucose 113 H (74-99) mg/dL POC Glucose (mg/dL) 136 H 139 H (70-110) mg/dL Plasma Lactic Acid Stiven (0.7-2.0) mmol/L
--- NOTE | 2022-04-22 12:23 | EEG ---
ELECTROENCEPHALOGRAM REPORT DATE OF SERVICE: 04/21/2022 PREAMBLE: This is a 46-year-old female who has presented with a seizure. This study is performed to evaluate for any epileptiform activity. EEG FINDINGS: This is a 21-channel digital EEG recorded with video competent, utilizing 10/20 international system with referential and bipolar montages. Background consists of well developed, well regulated, moderate voltage activity in 10 to 11 hertz alpha mixed with some low-voltage fast frequency beta activity seen in bihemispheric region. This study is technically limited because of patient's frequent movement artifact during the study. Drowsiness was seen with appearance of bilaterally symmetric theta frequency rhythm. Deeper stages of sleep were not seen. Photic stimulation was not performed. No definitive focal or generalized epileptiform activity was seen. IMPRESSION: This is a normal awake and drowsy EEG. No focal, lateralized or epileptiform activity was seen. EEG was technically limited because of frequent movement artifact during most of the study. MMODL / IJN: [id number] /
--- NOTE | 2022-04-22 12:48 | MR ---
EXAMINATION TYPE: MR brain wo/w con DATE OF EXAM: 04/22/2022 COMPARISON: CT brain 04/21/2022 HISTORY: Seizures TECHNIQUE: Multiplanar, multisequence images of the brain and brainstem is performed without and with IV contras t, utilizing 10 mL intravenous Gadavist . FINDINGS: Right internal carotid artery shows abnormal signal on inversion recovery T2-weighted seque nces, increased as compared to expected vascular flow voids. Diffusion weighted images demonstrate no evidence of a recent infarct or other diffusion abnormality. There is no extra-axial fluid collecti on or significant change and white matter signal abnormality, remote infarct noted along the external capsule is again seen extending into the palacios radiata, periventricular right frontal white matter on the right, there is corresponding hyperintensity on inversion recovery T2-weighted sequences, hype rintensity present within the right keagan on inversion recovery T2-weighted sequences. The ventricula r system and cisternal spaces are normal in size and appearance, ex vacuo phenomenon present of the r ight lateral ventricle frontal horn. The brain volume is age appropriate. Midline structures demonstrate normal morphology. The craniocervical junction appears within normal limits. Post contrast images demonstrate some internal carotid artery enhancement along the siphon. The dural venous sinuses appear patent. The visualized sinuses are clear and the globes are intact. S ome inflammatory changes present in the mastoid air cells on the right IMPRESSION: Chronic small vessel . Correlate for possible chronic right internal carotid artery occ lusion or low flow state, carotid Doppler, MRA or CTA could be performed for additional evaluation. I nflammatory change present within the mastoid air cells on the right.
--- NOTE | 2022-04-22 16:58 | US ---
EXAMINATION TYPE: US carotid duplex BILAT DATE OF EXAM: 04/22/2022 COMPARISON: NONE CLINICAL HISTORY: Carotid occlusion noted on MRI. Possible occlusion, patient unaware of history EXAM MEASUREMENTS: RIGHT: Peak Systolic Velocity (PSV) cm/sec ----- Right CCA: 70.9 ----- Right ICA: no flow ----- Right ECA: 65.8 ICA/CCA ratio: N/A RIGHT: End Diastole cm/sec ----- Right CCA: 12.3 ----- Right ICA: no flow ----- Right ECA: 7.1 LEFT: Peak Systolic Velocity (PSV) cm/sec ----- Left CCA: 98.7 ----- Left ICA: 94.6 ----- Left ECA: 75.0 ICA/CCA ratio: 1.0 LEFT: End Diastole cm/sec ----- Left CCA: 32.1 ----- Left ICA: 37.0 ----- Left ECA: 5.1 VERTEBRALS (direction of flow): Right Vertebral: Antegrade Left Vertebral: Antegrade Rhythm: Normal No flow seen within the right ICA, correlates with MRI IMPRESSION: 1. No evidence of the right internal carotid artery flow suggesting occlusion. 2. Less than 50% stenosis of the left carotid bifurcation. Criteria for Assigning % of Stenosis / Diameter reduction (Estimation based on the indirect measurements of the internal carotid artery velocities (ICA PSV). 1. Normal (no stenosis)=ICA PSV < 125 cm/s: ratio < 2.0: ICA EDV<40 cm/s. 2. Less than 50% stenosis=ICA PSV < 125 cm/s: ratio < 2.0: ICA EDV<40 cm/s. 3. 50 to 69% stenosis=ICA PSV of 125 to 230 cm/s: ration 2.0 ? 4.0: ICA EDV 40-100 cm/s. 4. Greater than 70% stenosis to near occlusion= ICA PSV > 230 cm/s: ratio > 4.0: ICA EDV > 100 cm/s. 5. Near occlusion= ICA PSV velocities may be low or undetectable: variable ratio and ICA EDV. 6. Total occlusion=unable to detect flow.
[2022-04-22 17:01] LABS: Glucose,Whole Blood 112 mg/dL (70-110)
--- NOTE | 2022-04-22 17:04 | P.PN ---
Subjective Progress Note Date: 04/22/22 Patient was seen for a follow-up. Patient is sitting on the side of the bed. Offers no new complaints. Patient denies any history of strokes or TIA. Objective - Vital Signs Vital signs: Vital Signs Temp 98.6 F 04/22/22 11:27 Pulse 102 H 04/22/22 11:27 Resp 16 04/22/22 11:27 BP 114/77 04/22/22 11:27 Pulse Ox 96 04/22/22 11:27 FiO2 Intake & Output 04/21/22 04/22/22 04/22/22 18:59 06:59 18:59 Intake Total 280 Balance 280 Weight 87.997 kg 97.069 kg Intake: IV 180 0.9 180 Intake, IV Titration 100 Amount levETIRAcetam IV 500 mg 100 In Sodium Chloride 0.9% 100 ml @ 400 mls/hr IVPB Q12HR COUNTS INCLUDE 234 BEDS AT THE [facility] Rx#:[id number] Other: Voiding Method Toilet Toilet # Voids 2 - Exam Patient's mental status, speech and language functions are normal. Muscle strength is normal in arms and legs. No ataxia. Tone and bulk of muscles normal - Labs CBC & Chem 7: 04/22/22 05:41 04/22/22 05:41 Labs: Abnormal Lab Results - Last 24 Hours (Table) 04/21/22 04/21/22 04/21/22 Range/Units 17:04 17:51 21:08 RBC (3.80-5.40) m/uL Hgb (11.4-16.0) gm/dL Hct (34.0-46.0) % RDW (11.5-15.5) % Sodium (137-145) mmol/L Chloride (98-107) mmol/L Carbon Dioxide (22-30) mmol/L Glucose (74-99) mg/dL POC Glucose (mg/dL) 211 H (70-110) mg/dL Plasma Lactic Acid Stiven 3.2 H* 2.5 H* (0.7-2.0) mmol/L 04/22/22 04/22/22 04/22/22 Range/Units 05:41 05:41 07:42 RBC 3.58 L (3.80-5.40) m/uL Hgb 10.2 L (11.4-16.0) gm/dL Hct 32.2 L (34.0-46.0) % RDW 16.2 H (11.5-15.5) % Sodium 136 L (137-145) mmol/L Chloride 110 H (98-107) mmol/L Carbon Dioxide 20 L (22-30) mmol/L Glucose 113 H (74-99) mg/dL POC Glucose (mg/dL) 136 H (70-110) mg/dL Plasma Lactic Acid Stiven (0.7-2.0) mmol/L 04/22/22 Range/Units 11:29 RBC (3.80-5.40) m/uL Hgb (11.4-16.0) gm/dL Hct (34.0-46.0) % RDW (11.5-15.5) % Sodium (137-145) mmol/L Chloride (98-107) mmol/L Carbon Dioxide (22-30) mmol/L Glucose (74-99) mg/dL POC Glucose (mg/dL) 139 H (70-110) mg/dL Plasma Lactic Acid Stiven (0.7-2.0) mmol/L Assessment and Plan Assessment: * Breakthrough seizures 2 (witnessed by mother at home and then second seizure witnessed by ED staff in ER). Seizures likely due to lowered seizure threshold from Wellbutrin, that was started 2 weeks ago. Patient has history of a solitary seizure 8 years ago, which was of unclear etiology, not placed on AED at that time. * Right ICA occlusion, chronic. * MRI brain showing remote ischemic infarction involving right external capsule. * Depression * Hypertension * Hyperlipidemia * Diabetes, poorly controlled * PCOS Plan: * MRI of the brain with and without contrast revealed chronic small vessel ischemic disease. Correlate for possible chronic right internal carotid artery occlusion or low flow state. Consider carotid Doppler or MRA. Inflammatory change present within the mastoid air cells on the right. There is evidence of remote infarct noted along the external capsule is again seen extending into the palacios radiata, periventricular right frontal white matter on the right. I personally reviewed MRI agree with the findings. No acute ischemic process. No mass. * EEG was normal awake and drowsy. No epileptiform activity was seen. Study was technically limited because of frequent movement and myogenic artifacts. * As patient has evidence of an old stroke, therefore would continue Keppra 500 mg every 12 hours. * Discontinue Wellbutrin. * Carotid Doppler, rule out stenosis or occlusion. * Start aspirin 81 mg daily. * Patient's hemoglobin A1c is 9.9. Suggest optimize control of diabetes to target A1c <7.0 * Check fasting a.m. lipid panel. Continue Lipitor 40 mg daily, which she should continue. Update: Carotid revealed no evidence of right internal carotid artery flow suggesting occlusion. Less than 50% stenosis of the left carotid bifurcation. Antegrade flow in both vertebral arteries.. It appears patient has chronic right ICA occlusion. Clear for discharge on Keppra 500 mg twice a day, aspirin 81 mg daily. Continue Lipitor. Recommend follow-up with neurologist as outpatient in 2-4 weeks. Consider prolonged EEG as outpatient.
[2022-04-22 20:41] LABS: Glucose,Whole Blood 193 mg/dL (70-110)
[2022-04-22] MEDS: levETIRAcetam 500 MG TAB PO SCH (21:15)
[2022-04-22] MEDS: ATORVASTATIN 40 MG TAB PO SCH (21:16)
[2022-04-22 23:01] LABS: LDL Cholesterol,Calculated 31.5 mg/dL (0.0-131.0)
[2022-04-23] MEDS: ACETAMINOPHEN TAB 325 MG TAB PO PRN ×2 (05:00→11:23)
[2022-04-23 07:24] LABS: Glucose,Whole Blood 134 mg/dL (70-110)
[2022-04-23] MEDS: INSULIN ASPART (NovoLOG) 100 UNIT/ML VIAL SQ SCH ×2 (07:26→12:32)
[2022-04-23] MEDS: INSULN ASP PRT/INSULIN ASPART 100 UNIT/ML 10 ML VIAL SQ SCH (08:34)
[2022-04-23] MEDS: lisinopriL 20 MG TAB PO SCH (10:22)
[2022-04-23] MEDS: levETIRAcetam 500 MG TAB PO SCH (10:22)
[2022-04-23] MEDS: GABAPENTIN 300 MG CAP PO SCH (10:22)
[2022-04-23] MEDS ORDERED: ASPIRIN 81 MG PO STA (10:49)
[2022-04-23 12:22] LABS: Glucose,Whole Blood 125 mg/dL (70-110)
--- NOTE | 2022-04-23 12:41 | P.PN ---
Subjective Progress Note Date: 04/23/22 Hospital course: Patient is a Physical exam: Vital signs reviewed and stable. General: Nontoxic, no distress and appears stated age. Derm: Skin warm and dry, normal coloration for ethnicity. Head: Atraumatic, normocephalic and symmetric. Eyes: EOMs intact, no lid lag, and anicteric sclera Mouth: no lip lesions, mucus membranes moist Cardiovascular: regular rate and rhythm with normal S1S2, no murmur, positive posterior tibial pulses bilaterally, and cap refill < 2 seconds. Lungs: Respirations even, regular, and unlabored on room air. Lungs CTA bilaterally, no rhonchi, no rales, no wheezing, and no accessory muscle usage. Abdominal: soft, nontender to palpation, no guarding, no appreciable organomegaly Ext: ROM intact. No gross muscle atrophy, no edema, no contractures Neuro: Speech clear, face symmetrical and CN II-XII grossly intact with no noted focal neuro deficits Psych: Alert and oriented to person, place, time, and situation. Appropriate and pleasant affect. Assessment and Plan of Care: CODE STATUS:[] DVT prophylaxis: [] Discussed with: [] Anticipated discharge date: [] Anticipated discharge place: [] A total of [] minutes was spent on the care of this complex patient more than 50% of the time was spent in counseling and care coordination. Objective - Vital Signs Vital signs: Vital Signs Temp 97.7 F 04/23/22 07:20 Pulse 89 04/23/22 07:20 Resp 18 04/23/22 07:20 BP 110/71 04/23/22 07:20 Pulse Ox 93 L 04/23/22 05:00 FiO2 Intake & Output 04/22/22 04/23/22 04/23/22 18:59 06:59 18:59 Intake Total 360 590 Balance 360 590 Intake: Oral 360 590 Other: Voiding Method Toilet Toilet Toilet # Voids 4 3 - Labs CBC & Chem 7: 04/22/22 05:41 04/22/22 05:41 Labs: Abnormal Lab Results - Last 24 Hours (Table) 04/22/22 04/22/22 04/22/22 Range/Units 16:57 16:58 20:10 POC Glucose (mg/dL) 112 H 193 H (70-110) mg/dL Triglycerides 159.00 H (0.00-149.00) mg/dL 04/23/22 04/23/22 Range/Units 07:22 12:21 POC Glucose (mg/dL) 134 H 125 H (70-110) mg/dL Triglycerides (0.00-149.00) mg/dL
[2022-04-23 13:03] VITALS: BP 117/78; PULSE 93; RESP 19; TEMP 97.8
--- NOTE | 2022-04-23 13:29 | P.GSCN ---
History of Present Illness Consult date: 04/23/22 Reason for Consult: Right ICA occlusion Requesting physician: Jefferson Arredondo History of present illness: This is a pleasant 46-year-old female with past medical history of type 2 diabetes mellitus, hypertension, hyperlipidemia and remote seizure. Patient was brought in by EMS on 04/21/2022 after her mother witnessed her having a seizure at home. The patient also had another seizure witnessed in the emergency department. She states her last seizure was approximately 8 years ago, it was one time, she was not started on any antiepileptics. She isn't sure what caused the initial seizure. Neurology was consulted. Patient had an EEG that was normal. CT of the brain with no acute changes. She had an MRI of the brain Reported chronic small vessel. Correlate for possible chronic right internal carotid artery occlusion or slow flow state, carotid Doppler, MRA or CTA could be performed for additional evaluation. Inflammatory change present within the mastoid air cells on the right. There is evidence of remote infarct noted along the external capsule is again seen extending into the palacios radiata, periven tricular right frontal white matter on the right. No acute ischemic process. No mass. Due to these findings the patient underwent a carotid duplex that reported right internal carotid artery occlusion, less than 50% stenosis of the left carotid bifurcation. Vascular surgery was consulted for right ICA occlusion. The patient denies any kind of focal deficits. She states that she never had any visual loss, changes, difficulty speaking, difficulty swallowing, upper or lower extremity weakness. She denies any further seizure activity. Review of Systems A 14 point review systems was completed all pertinent positives and negatives as stated in the HPI. Past Medical History Past Medical History: Diabetes Mellitus, Hypertension Additional Past Medical History / Comment(s): 1 seizure History of Any Multi-Drug Resistant Organisms: None Reported Past Surgical History: Cholecystectomy, Hysterectomy, Tonsillectomy Additional Past Surgical History / Comment(s): partial hysterectomy, extracorpor eal shockwave lithotripsy and ureteroscopy with lithotripsy twice Past Anesthesia/Blood Transfusion Reactions: No Reported Reaction Past Psychological History: Depression Past Alcohol Use History: None Reported Past Drug Use History: None Reported - Past Family History Father Family Medical History: Diabetes Mellitus, Myocardial Infarction ([place]) Additional Family Medical History / Comment(s): from [place] in 2007 at 60 years Medications and Allergies Home Medications Medication Instructions Recorded Confirmed Type lisinopriL [Prinivil] 20 mg PO DAILY 03/12/18 04/21/22 History metFORMIN HCL [Glucophage] 1,000 mg PO BID 03/12/18 04/21/22 History Atorvastatin Calcium [Lipitor] 40 mg PO HS 04/21/22 04/21/22 History Gabapentin 600 mg PO BID 04/21/22 04/21/22 History Insulin NPH Hum/Reg Insulin Hm 75 unit SQ BID 04/21/22 04/21/22 History [Novolin 70-30 100 Unit/ml Vial] Aspirin 81 mg PO DAILY 30 Days #30 tab 04/23/22 Rx levETIRAcetam [Keppra] 500 mg PO Q12HR 30 Days #60 tab 04/23/22 Rx Allergies Allergy/AdvReac Type Severity Reaction Status Date / Time amoxicillin [From Augmentin] AdvReac Vomiting Verified 04/21/22 11:29 bupropion AdvReac Confusion Verified 04/22/22 10:12 clavulanic acid AdvReac Vomiting Verified 04/21/22 11:29 [From Augmentin] Surgical - Exam Vital Signs Temp Pulse Resp BP Pulse Ox 97.9 F 133 H 22 151/104 96 04/21/22 08:24 04/21/22 08:24 04/21/22 08:24 04/21/22 08:24 04/21/22 08:24 General appearance: The patient is alert, oriented, appears in no acute distress. Obese. HET: Head is normocephalic and atraumatic. Pupils are equal and reactive. Neck: Supple without lymphadenopathy. Trachea midline. No audible carotid bruit. Heart: S1 S2. Regular rate and rhythm. Lungs: Clear to auscultation bilaterally. Abdomen: Soft, nontender, nondistended. Extremities: Normal skin color and turgor. No cyanosis, rash, ulceration, clubbing, or edema. Radial and pedal pulses are 2/4 bilaterally. Neurological: No focal deficits. Strength and sensation are grossly intact. Results - Labs 04/22/22 05:41 04/22/22 05:41 Abnormal Lab Results - Last 24 Hours (Table) 04/22/22 04/22/22 04/22/22 Range/Units 16:57 16:58 20:10 POC Glucose (mg/dL) 112 H 193 H (70-110) mg/dL Triglycerides 159.00 H (0.00-149.00) mg/dL 04/23/22 04/23/22 Range/Units 07:22 12:21 POC Glucose (mg/dL) 134 H 125 H (70-110) mg/dL Triglycerides (0.00-149.00) mg/dL Diabetes panel 04/22/22 Range/Units 16:58 Triglycerides 159.00 H (0.00-149.00) mg/dL HDL Cholesterol 48.70 (40.00-60.00) mg/dL - Imaging Comments: As stated in the HPI Assessment and Plan Assessment: 1. Right internal carotid artery occlusion 2. Remote infarct noted along external capsule 3. Breakthrough seizures 2 4. Type 2 diabetes mellitus 5. Hypertension 6. Hyperlipidemia Plan: 1. Continue atorvastatin 40 mg daily, aspirin 81 mg daily 2. There is no indication for any vascular surgical intervention 3. Patient can schedule follow-up with Dr. Mcdaniel as an outpatient, further evaluation and workup as needed. Thank you for this consultation, the patient is cleared for discharge from vascular surgery. The impression and plan of care has been dictated as directed. Dr. Mcdaniel I performed a history and examination of this patient, discussed the same with the dictator. I agree with the dictator's note ,documented as a scribe. Any a dditional findings or plans will be noted.
--- NOTE | 2022-04-23 15:19 | P.DS ---
Providers Date of admission: 04/21/22 13:19 Expected date of discharge: 04/23/22 Attending physician: Ander Haque MD Consults: 04/21/22 13:19 Consult Physician Routine Consulting Provider: Rob Diego Consult Reason/Comments: Seizure Do you want consulting provider notified?: Yes 04/23/22 12:39 Consult Physician Urgent Consulting Provider: Annia Mcdaniel Consult Reason/Comments: Right ICA occlusion Do you want consulting provider notified?: Yes Primary care physician: Linus Lundberg MD Hospital Course: Discharge Diagnosis: Tonic clonic seizures 2 episodes, Patient was started on Keppra 500 mg twice a day. Wellbutrin was discontinued. Patient was informed of [place] state law stating no driving until seizure free for 6 months. Patient also instructed to avoid climbing ladders, operating dangerous or heavy machinery or unsupervised swimming until seizure free for 6 months. Patient to follow up outpatient with neurology. Remote infarct reported on MRI to be along right external capsule, Imitrex discontinued. Patient to continue daily aspirin and atorvastatin and follow up outpatient with neurology. Right internal carotid artery occlusion, continue aspirin and atorvastatin daily and follow up outpatient with vascular surgery for continued long-term monitoring/management. Insulin-dependent diabetes mellitus type II, continue daily medication regimen with metformin and insulin NPH 75 units twice daily. Hypertension, monitor vital signs and continue daily medication regimen with lisinopril Hyperlipidemia, continue daily medication regimen with atorvastatin. Hospital Course: Patient is a very pleasant 46-year-old female with a past medical history of hypertension, hyperlipidemia, insulin-dependent diabetes mellitus, migraines, and depression. She presented to the emergency department on 04/21/22 with a chief complaint of witnessed seizure. Patient reports history of isolated seizure activity approximately 8 years ago with no further events. Patient states she was recently started on Wellbutrin for treatment of her depression and was found at home by her mother with clonic tonic activity lasting approximately 2 minutes followed by postictal confusion. Upon arrival to the hospital patient was undergoing full evaluation. She was again noted to have a witnessed seizure in the emergency department lasting just under 1 minute which again was reported as having tonic-clonic activity. Patient was given loading dose of Keppra. CT head was completed negative for acute intercranial process revealing remote injury to the right insula. EKG completed revealing sinus tachycardia at 131 bpm. Chest x-ray negative for acute cardiopulmonary process. CBC revealing mild normocytic normochromic anemia with hemoglobin of 11.1. BMP revealing mild hyponatremia with sodium of 134 and slightly elevated liver functions with AST of 51 and ALT of 44. Initial lactate was elevated at 2.5 with repeat lactate of 1.3. Urinalysis negative for infection. Urine drug screen positive for opiates, tricyclics, and benzodiazepines. Patient was a dmitted under our services of consultation to neurology. EEG was completed showing no epileptiform activity. Brain MRI completed revealing chronic small vessel disease and concerning for chronic right internal carotid artery occlusion with remote infarct along right external capsule. Carotid Dopplers then completed revealing occlusion of right internal carotid artery and less than 50% stenosis of the left carotid bifurcation. Vascular surgery was consulted. Vascular surgery and agreement with daily aspirin and atorvastatin with no plans for surgical intervention. Vascular surgery recommending patient follow-up outpatient in the office in 2 weeks. Patient is medically stable at this time she has had no further episodes of seizure activity since being started on Keppra. Patient being discharged home with prescription for Keppra as well as aspirin and to continue daily medication regimen with. Atorvastatin, lisinopril, metformin, insulin, and Neurontin. Patient was instructed that Wellbutrin is discontinued secondary to seizure activity and Imitrex is discontinued secondary to MRI findings concerning of remote infarct along right external capsule. Patient medically stable at this time and to follow up outpatient with PCP in 1-2 days, neurology in 2 weeks, and vascular surgery in 2-3 weeks. Physical examination: Patient seen and examined at bedside. Vital signs reviewed and stable. General: Nontoxic, no distress and appears stated age. Derm: Skin warm and dry, normal coloration for ethnicity. Head: Atraumatic, normocephalic and symmetric. Eyes: EOMs intact, no lid lag, and anicteric sclera Mouth: no lip lesions, mucus membranes moist Cardiovascular: regular rate and rhythm with normal S1S2, no murmur, positive p osterior tibial pulses bilaterally, and cap refill < 2 seconds. Lungs: Respirations even, regular, and unlabored on room air. Lungs CTA bilaterally, no rhonchi, no rales, no wheezing, and no accessory muscle usage. Abdominal: soft, nontender to palpation, no guarding, no appreciable organomegaly Ext: ROM intact. No gross muscle atrophy, no edema, no contractures Neuro: Speech clear, face symmetrical and CN II-XII grossly intact with no noted focal neuro deficits Psych: Alert and oriented to person, place, time, and situation. Appropriate and pleasant affect. A total of 35 minutes of time were spent preparing this complex discharge summary. Pt was discharged on 04/23/22 at 1:30 PM. Patient Condition at Discharge: Stable Plan - Discharge Summary Discharge Rx Participant: Yes New Discharge Prescriptions: New levETIRAcetam [Keppra] 500 mg PO Q12HR 30 Days #60 tab Aspirin 81 mg PO DAILY 30 Days #30 tab Continue metFORMIN HCL [Glucophage] 1,000 mg PO BID lisinopriL [Prinivil] 20 mg PO DAILY Gabapentin 600 mg PO BID Atorvastatin Calcium [Lipitor] 40 mg PO HS Insulin NPH Hum/Reg Insulin Hm [Novolin 70-30 100 Unit/ml Vial] 75 unit SQ BID Discontinued Cyclobenzaprine HCl 10 mg PO BID PRN PRN Reason: Muscle Spasm SUMAtriptan succinate [Imitrex] 25 mg PO BID PRN PRN Reason: Migraine Headache Discharge Medication List lisinopriL [Prinivil] 20 mg PO DAILY 03/12/18 [History] metFORMIN HCL [Glucophage] 1,000 mg PO BID 03/12/18 [History] Atorvastatin Calcium [Lipitor] 40 mg PO HS 04/21/22 [History] Gabapentin 600 mg PO BID 04/21/22 [History] Insulin NPH Hum/Reg Insulin Hm [Novolin 70-30 100 Unit/ml Vial] 75 unit SQ BID 04/21/22 [History] Aspirin 81 mg PO DAILY 30 Days #30 tab 04/23/22 [Rx] levETIRAcetam [Keppra] 500 mg PO Q12HR 30 Days #60 tab 04/23/22 [Rx] Follow up Appointment(s)/Referral(s): Brennen Siddiqui MD [REFERRING] - 1 Week (The office will call you with an appointment time and date.) Linus Lundberg MD [Primary Care Provider] - 04/27/22 11:40 am Annia Mcdaniel DO [STAFF PHYSICIAN] - 05/20/22 9:30 am Patient Instructions/Handouts: Seizure/Epilepsy Discharge Instructions & Follow-Up, Aspirin (By mouth), Levetiracetam (By mouth), Carotid Artery Disease (DC) Activity/Diet/Wound Care/Special Instructions: Activity: As tolerated. Take breaks as needed. Diet: Heart healthy and carb consistent diet. Avoid salts, or foods with hidden salts such as canned or boxed foods and frozen dinners. Extra salt makes your heart work harder and traps the fluid in your body for longer. Special Instructions: Take all of your medications as directed and remember to keep all of your doctor's appointments and follow-up as needed. Wellbutrin and Imitrex have both been discontinued. You will need to continue with daily aspirin 81 mg as a lifelong regimen. You have also been started on an antiepileptic medication - Keppra 500 mg twice daily. It is recommended that you follow up outpatient with neurology and vascular surgery in addition to your PCP. Thank you for allowing us to participate in your care, it was truly a pleasure having you for our patient!!! Discharge Disposition: HOME SELF-CARE
--- NOTE | 2022-04-23 15:20 | P.PN ---
Subjective Progress Note Date: 04/23/22 Patient was seen for a follow-up. Patient is laying comfortably in the bed. Offers no new complaints. Patient denies any history of strokes or TIA. Objective - Vital Signs Vital signs: Vital Signs Temp 97.7 F 04/23/22 07:20 Pulse 89 04/23/22 07:20 Resp 18 04/23/22 07:20 BP 110/71 04/23/22 07:20 Pulse Ox 93 L 04/23/22 05:00 FiO2 Intake & Output 04/22/22 04/23/22 04/23/22 18:59 06:59 18:59 Intake Total 360 590 Balance 360 590 Intake: Oral 360 590 Other: Voiding Method Toilet Toilet Toilet # Voids 4 3 - Exam Patient's mental status, speech and language functions are normal. Muscle strength is normal in arms and legs. No ataxia. Tone and bulk of muscles normal - Labs CBC & Chem 7: 04/22/22 05:41 04/22/22 05:41 Labs: Abnormal Lab Results - Last 24 Hours (Table) 04/22/22 04/22/22 04/22/22 Range/Units 11:29 16:57 16:58 POC Glucose (mg/dL) 139 H 112 H (70-110) mg/dL Triglycerides 159.00 H (0.00-149.00) mg/dL 04/22/22 04/23/22 Range/Units 20:10 07: POC Glucose (mg/dL) 193 H 134 H (70-110) mg/dL Triglycerides (0.00-149.00) mg/dL Assessment and Plan Assessment: * Breakthrough seizures 2 (witnessed by patient's mom at home and then second seizure witnessed by ED staff in ER). Seizures likely due to lowered seizure threshold from Wellbutrin, that was started 2 weeks ago. Patient has history of a solitary seizure 8 years ago, which was of unclear etiology, not placed on AED at that time. * Right ICA occlusion, chronic. * MRI brain showing remote ischemic infarction involving right external capsule. * Depression * Hypertension * Hyperlipidemia * Diabetes, poorly controlled * PCOS Plan: * MRI of the brain with and without contrast revealed chronic small vessel ischemic disease. Correlate for possible chronic right internal carotid artery occlusion or low flow state. Consider carotid Doppler or MRA. Inflammatory change present within the mastoid air cells on the right. There is evidence of remote infarct noted along the external capsule is again seen extending into the palacios radiata, periventricular right frontal white matter on the right. I personally reviewed MRI agree with the findings. No acute ischemic process. No mass. * EEG was normal awake and drowsy. No epileptiform activity was seen. Study was technically limited because of frequent movement and myogenic artifacts. * As patient has evidence of an old stroke, therefore would continue Keppra 500 mg every 12 hours. * Discontinue Wellbutrin. * Start aspirin 81 mg daily. (Patient given loading dose of aspirin 324 mg daily) * Patient's hemoglobin A1c is 9.9. Suggest optimize control of diabetes to target A1c <7.0 * Fasting a.m. lipid panel with cholesterol 112, LDL 31, HDL 48 and triglycerides 159. Continue Lipitor 40 mg daily, as she was at home. * Carotid revealed no evidence of right internal carotid artery flow suggesting occlusion. Less than 50% stenosis of the left carotid bifurcation. Antegrade flow in both vertebral arteries. Patient had a lot of concerns about right ICA occlusion. Recommend vascular surgical consultation. It appears patient has chronic right ICA occlusion. Vascular surgery input appreciated. Reviewed your note. * Clear for discharge on Keppra 500 mg twice a day, aspirin 81 mg daily. Continue Lipitor. * Consider prolonged EEG as outpatient. * Recommend follow-up with neurologist as outpatient in 2-4 weeks.
== END 2022-04-23 15:25 | disposition home or self-care (01) | DRG 101 ==
LOC: EC 08:21 → 5NMEDONC 13:19
PROVIDERS: ADMIT Internal Medicine; ATTEND Internal Medicine
PROC: 4A1 Measurement and Monitoring, Physiological Systems, Monitoring (ICD-10-PCS; principal; 2022-04-22)
DX: G40.509 Epileptic seizures related to external causes, not intractable, without status epilepticus (principal); E87.1 Hypo-osmolality and hyponatremia; E87.2 Acidosis; F05 Delirium due to known physiological condition; E83.42 Hypomagnesemia; E86.0 Dehydration; S01.552A Open bite of oral cavity, initial encounter; I10 Essential (primary) hypertension; D64.9 Anemia, unspecified; E11.65 Type 2 diabetes mellitus with hyperglycemia; E28.2 Polycystic ovarian syndrome; E78.5 Hyperlipidemia, unspecified; F32.A Depression, unspecified; G43.909 Migraine, unspecified, not intractable, without status migrainosus; I65.21 Occlusion and stenosis of right carotid artery; Z79.4 Long term (current) use of insulin; Z79.82 Long term (current) use of aspirin; Z79.84 Long term (current) use of oral hypoglycemic drugs; Z79.899 Other long term (current) drug therapy; Z82.49 Family history of ischemic heart disease and other diseases of the circulatory system; Z83.3 Family history of diabetes mellitus; Z90.711 Acquired absence of uterus with remaining cervical stump; Z88.1 Allergy status to other antibiotic agents; Z88.8 Allergy status to other drugs, medicaments and biological substances; Z90.49 Acquired absence of other specified parts of digestive tract; Z90.710 Acquired absence of both cervix and uterus
CPT/HCPCS: 36415; 70450; 70553; 71046; 80048; 80053; 80061; 80306; 81003; 82550; 83605; 83735; 84443; 85025; 85379; 93005; 93880; 95816; 96365; 96366; 96375; 96376; 99291

== ENCOUNTER → 2024-08-04 | Outpatient (CLI) | payer OTHER ==
[2024-08-05 02:36] LABS: ALT 30 U/L (8-44); AST 43 U/L (13-35); Albumin 3.9 g/dL (3.8-4.9); Albumin/Globulin Ratio 1.08 Ratio (1.60-3.17); Alkaline Phosphatase 123 U/L (41-126); BUN/Creat Ratio 38.83 Ratio (12.00-20.00); Blood Urea Nitrogen 23.3 mg/dL (9.0-27.0); Calcium 10.9 mg/dL (8.7-10.3); Carbon Dioxide 20.3 mmol/L (21.6-31.8); Chloride 101 mmol/L (96-109); Globulin 3.6 g/dL (1.6-3.3); Glucose 149 mg/dL (70-110); Potassium 5.1 mmol/L (3.5-5.5); Sodium 134 mmol/L (135-145); Total Bilirubin 0.2 mg/dL (0.3-1.2); Total Protein 7.5 g/dL (6.2-8.2)
== END | disposition home or self-care (01) ==
LOC: LABWHC1 14:47
PROVIDERS: ATTEND Internal Medicine
DX: E11.65 Type 2 diabetes mellitus with hyperglycemia (principal)
CPT/HCPCS: 36415; 80053